=== PATIENT | male | born 1940 | race Caucasian/White ===

== ENCOUNTER → 2016-04-28 | Outpatient (CLI) | payer MEDICARE ==
[~2016-04-28] MED LIST: REGADENOSON 0.4 MG/5 ML SYRINGE IV ONE
--- NOTE | 2016-04-28 11:09 | EST ---
DATE OF SERVICE: 04/28/2016 AGE: 75Y SEX: M HT: 5'9" WT: 176 lbs. Protocol Arnie: Other: Lexiscan Cardiolite Stage: Dur. of Exercise: *Heart Rate Blood Pressure *Rest: 59 Rest: 145/109 * *Max. Achieved: 97 Maximum BP: 108/62 85% PMHR: 100% PMHR: *METS: INDICATIONS: Chest pain. MEDICATIONS: Aspirin, carvedilol, atorvastatin. STRESS DATA: Pretesting physical examination showed the heart rate 59, pressure is 145/109 mmHg. Baseline EKG shows sinus mechanism with Q wave inversion in the inferolateral leads. 4 mg of Lexiscan was given to the patient over ( ) seconds per protocol. Max heart rate was 97 beats per minute. The maximum blood pressure was 108/62 mmHg. Clinically, the patient developed some shortness of breath. The EKG did not show any significant changes compared to baseline. CONCLUSION: 1. Nondiagnostic electrocardiogram stress testing in response to Lexiscan. 2. Please follow up on the Cardiolite portion on a separate report from the radiology department.
--- NOTE | 2016-04-28 11:37 | NM ---
EXAMINATION TYPE: NM stress lexiscan cardiolite DATE OF EXAM: 04/28/2016 11:18 AM COMPARISON: NONE HISTORY: History of hypertension, prior stroke, hypercholesterolemia, tobacco use, prior heart cathet erization, and prior heart attack presents with chest pain per patient. Bradycardia per order. TECHNIQUE: After the intravenous administration of 11.0 mCi Tc 99m Sestamibi - Cardiolite resting SP ECT images acquired 45 minutes post injection. The patient received 0.4mg Lexiscan, 26.7 mCi Tc 99m Sestamibi - Stress images obtained [address] injection FINDINGS: Review of stress and rest SPECT images demonstrates poor area of uptake on stress and rest SPECT imag es involving the apex extending into all jules worrisome for old infarct. Some areas of periinfarct i schemia cannot be excluded on polar map imaging near the apex extending to mid segment level. Gated a nalysis shows akinesis of the apex, overall ejection fraction is 40% diminished from the normal range . IMPRESSION: Evidence of significant old infarct with cher-infarct ischemia though unlikely cannot be excluded, need to further investigate by direct catheter angiogram should be based on clinical and la b/EKG correlation.
== END | disposition home or self-care (01) ==
LOC: RADNMMAIN 08:16
PROVIDERS: ATTEND Family Medicine
DX: R94.31 Abnormal electrocardiogram [ECG] [EKG] (principal)
CPT/HCPCS: 93017; 78452; A9500; J2785

== ENCOUNTER → 2016-05-15 | Outpatient (CLI) | payer MEDICARE ==
--- NOTE | 2016-05-15 11:21 | ECHOF ---
Referral Reason:R00.1 bradycardia MEASUREMENTS -------- HEIGHT: 175.3 cm WEIGHT: 77.1 kg BP: 126/66 RVIDd: 2.5 cm (< 3.3) IVSd: 1.1 cm (0.6 - 1.1) LVIDd: 5.6 cm (3.9 - 5.3) LVPWd: 0.9 cm (0.6 - 1.1) IVSs: 1.7 cm LVIDs: 4.4 cm LVPWs: 1.7 cm LA Diam: 4.1 cm (2.7 - 3.8) LAESV Index (A-L): 24.89 ml/m Ao Diam: 3.4 cm (2.0 - 3.7) AV Cusp: 2.0 cm (1.5 - 2.6) MV EXCURSION: 12.364 mm (> 18.000) MV EF SLOPE: 57 mm/s (70 - 150) EPSS: 0.7 cm MV E Ellis: 0.43 m/s MV DecT: 337 ms MV A Ellis: 0.94 m/s MV E/A Ratio: 0.45 RAP: 5.00 mmHg RVSP: 25.29 mmHg FINDINGS -------- Resting bradycardia (HR<60bpm). This was a technically adequate study. The left ventricular size is normal. There is borderline concentric left ventricular hypertrophy. Overall left ventricular systolic function is moderate-severely impaired with, an EF between 30 - 35 %. Moderate basal septal hypertrophy with septal thickness 1.7 cm. Apical anterior LV wall motion is hypokinetic. Apical inferior LV wall motion is akinetic. Apical septum LV wall motion is akinetic. The right ventricle is normal in size. Normal LA size by volume 22+/-6 ml/m2. The right atrium is normal in size. Aortic valve is trileaflet and is mildly thickened. Trace to mild aortic regurgitation. The mitral valve leaflets are mildly thickened. Mild mitral annular calcification present. Mild mitral regurgitation is present. Mild tricuspid regurgitation present. Right ventricular systolic pressure is normal at < 35 mmHg. There is no pulmonic regurgitation present. The aortic root size is normal. IVC Not well visulized. There is no pericardial effusion. CONCLUSIONS -------- 1. Resting bradycardia (HR<60bpm). 2. Aortic valve is trileaflet and is mildly thickened. 3. Trace to mild aortic regurgitation. 4. The mitral valve leaflets are mildly thickened. 5. Mild mitral annular calcification present. 6. Mild mitral regurgitation is present. 7. Mild tricuspid regurgitation present. 8. Right ventricular systolic pressure is normal at < 35 mmHg. 9. There is no pulmonic regurgitation present. 10. The aortic root size is normal. 11. IVC Not well visulized. 12. This was a technically adequate study. 13. There is no pericardial effusion. 14. Moderate asymmetric septal hypertrophy with septal thickness 1.7 cm. 15. Apical anterior LV wall motion is hypokinetic. 16. Apical inferior LV wall motion is akinetic. 17. Apical septum LV wall motion is akinetic. 18. The right ventricle is normal in size. 19. Normal LA size by volume 22+/-6 ml/m2. 20. The right atrium is normal in size. EXTERNAL GRINDER TENDER: Fatmata Aguilar RDCS
== END | disposition home or self-care (01) ==
LOC: RADECHMAIN 08:18
PROVIDERS: ATTEND Family Medicine
DX: I08.3 Combined rheumatic disorders of mitral, aortic and tricuspid valves (principal)
CPT/HCPCS: 93306

== ENCOUNTER → 2019-10-26 | Outpatient (CLI) | payer MEDICARE ==
--- NOTE | 2019-10-26 11:49 | NM ---
EXAMINATION TYPE: NM stress lexiscan cardiolite DATE OF EXAM: 10/26/2019 COMPARISON: Prior stress test April 28, 2016 HISTORY: Abnormal EKG. History of hypertension, tobacco use, COPD, hypercholesterolemia, and 2 prior strokes along with myocardial infarction TECHNIQUE: After the intravenous administration of 9.9 mCi Tc 99m Sestamibi - Cardiolite resting SPE CT images acquired 45 minutes post injection. The patient received 0.4mg Lexiscan, 23.3 mCi Tc 99m Sestamibi - Stress images obtained [address] injection FINDINGS: Review of stress and rest SPECT images demonstrates persistent large area of diminished radiotracer u ptake involving the apex on all views extending into all jules consistent with large area of old infa rct. Gated analysis shows overall ejection fraction of 33% on current study, diminished from the norm al range. There is hypokinesis to akinesis of these old infarcted area. No convincing scintigraphic e vidence for new reversible ischemia. Increased end diastolic volume redemonstrated. 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 No convincing evidence for new reversible ischemia.
--- NOTE | 2019-10-26 20:29 | EST ---
EXERCISE STRESS DATE OF SERVICE: 10/26/2019 AGE: 79 SEX: M HT: 5'9" WT: 164 lbs PROTOCOL: Lexiscan Cardiolite STAGE: DURATION OF EXERCISE: HEART RATE REST: 49 BLOOD PRESSURE REST: 114/63 MAXIMUM HEART RATE ACHIEVED: 84 MAXIMUM BLOOD PRESSURE: 111/59 85% MPHR: 100% MPHR: METS: INDICATIONS: Abnormal EKG CLINICAL INFORMATION: 79-year-old male patient with abnormal ECG, referred for chest for a stress test. RESULTS: Baseline heart rate 49 beats per minute. Baseline blood pressure 140/63 mmHg. Baseline 12-lead ECG shows sinus rhythm with abnormal ST segments in the anterior precordial leads with occasional PVCs and ST depression in V5 and V6 and in the inferior leads. Patient received Lexiscan infusion per protocol. No significant change in heart rate or blood pressure. No symptoms noted. No new ECG abnormalities noted. Nuclear portion will be reported separately. MMODL / IJN: [id number] /
== END | disposition home or self-care (01) ==
LOC: RADNMMAIN 10-24 08:50
PROVIDERS: ATTEND Family Medicine
DX: R94.31 Abnormal electrocardiogram [ECG] [EKG] (principal)
CPT/HCPCS: 93017; 78452; A9500; J2785

== ENCOUNTER 2022-06-08 09:07 | Inpatient (IN) | payer MEDICARE ==
--- NOTE | 2022-06-08 09:26 | ED ---
General Adult HPI - General Stated complaint: UTI Time Seen by Provider: 06/08/22 09:11 Source: patient, EMS, RN notes reviewed Mode of arrival: EMS Limitations: altered mental status - History of Present Illness Initial comments: Patient is an 82-year-old male presenting to the emergency department with concern for possible urinary tract infection. Patient reportedly has been more weak recently. Patient also has strong smelling urine. EMS provides history. Patient is nonverbal. does show up later and confirms history - Related Data Home Medications Medication Instructions Recorded Confirmed Atorvastatin [Lipitor] 80 mg PO DAILY 02/03/15 06/08/22 Latanoprost Ophth [Xalatan 0.005%] 1 drops BOTH EYES HS 02/03/15 06/08/22 Tamsulosin [Flomax] 0.4 mg PO DAILY@0800 02/03/15 06/08/22 carvediloL [Coreg] 6.25 mg PO BID 03/08/15 06/08/22 Aspirin 325 mg PO HS 06/08/22 06/08/22 Bumetanide 1 mg PO DAILY@1000 06/08/22 06/08/22 Cephalexin [Keflex] 500 mg PO TID 06/08/22 06/08/22 Citalopram Hydrobromide 20 mg PO DAILY@0800 06/08/22 06/08/22 [Citalopram HBr] Ferrous Sulfate [Feosol] 325 mg PO DAILY@0800 06/08/22 06/08/22 Fexofenadine HCl [Margaret Allergy] 180 mg PO HS 06/08/22 06/08/22 Midodrine HCl 5 mg PO BID@1000,2000 06/08/22 06/08/22 Omeprazole [PriLOSEC] 20 mg PO HS 06/08/22 06/08/22 Allergies Allergy/AdvReac Type Severity Reaction Status Date / Time No Known Allergies Allergy Verified 06/08/22 12:51 Review of Systems ROS Statement: Those systems with pertinent positive or pertinent negative responses have been documented in the HPI. ROS Other: All systems not noted in ROS Statement are negative. Limitations: ROS unobtainable due to patients medical condition Past Medical History Past Medical History: CVA/TIA, Myocardial Infarction (UT), Prostate Disorder Additional Past Medical History / Comment(s): LEFT INGUINAL HERNIA, SPEECH EFFECTED BY STROKE PER SPOUSE Last Myocardial Infarction Date:: 1994 History of Any Multi-Drug Resistant Organisms: None Reported Past Surgical History: Appendectomy, Heart Catheterization, Orthopedic Surgery Additional Past Surgical History / Comment(s): cataracts Past Anesthesia/Blood Transfusion Reactions: No Reported Reaction Past Psychological History: No Psychological Hx Reported Past Alcohol Use History: None Reported Past Drug Use History: None Reported - Past Family History Father Family Medical History: Cancer Additional Family Medical History / Comment(s): LUNG Brother(s) Family Medical History: Cancer Additional Family Medical History / Comment(s): LUNG General Exam Limitations: altered mental status General appearance: alert, in no apparent distress Head exam: Present: atraumatic Eye exam: Present: normal appearance, PERRL ENT exam: Present: normal oropharynx Neck exam: Present: normal inspection. Absent: tenderness, meningismus Respiratory exam: Present: normal lung sounds bilaterally Cardiovascular Exam: Present: regular rate, normal rhythm GI/Abdominal exam: Present: soft. Absent: tenderness Extremities exam: Present: normal inspection. Absent: pedal edema, calf tenderness Neurological exam: Present: alert, altered Expanded Motor strength exam: RUE: 5, LUE: 5, RLE: 5, LLE: 5 Eye Response: (4) open spontaneously Motor Response: (6) obeys commands Verbal Response: incomprehensible sounds Psychiatric exam: Present: flat affect Skin exam: Present: normal color, erythema (Right lower leg cellulitis) Course Vital Signs 06/08/22 06/08/22 06/08/22 09:20 10:00 10:20 Temperature 97.6 F Pulse Rate 81 81 75 Respiratory 16 14 16 Rate Blood Pressure 107/64 114/77 97/65 O2 Sat by Pulse 99 99 99 Oximetry 06/08/22 06/08/22 06/08/22 10:30 10:45 11:00 Temperature Pulse Rate 59 L 51 L 57 L Respiratory 20 22 20 Rate Blood Pressure 97/65 105/56 99/57 O2 Sat by Pulse 98 96 97 Oximetry 06/08/22 06/08/22 06/08/22 11:15 11:30 11:45 Temperature Pulse Rate 67 85 87 Respiratory 22 24 24 Rate Blood Pressure 111/54 115/61 119/66 O2 Sat by Pulse 98 96 96 Oximetry 06/08/22 06/08/22 06/08/22 12:00 12:30 13:00 Temperature Pulse Rate 74 73 81 Respiratory 18 18 18 Rate Blood Pressure 122/63 119/79 132/74 O2 Sat by Pulse 94 L 93 L 94 L Oximetry 06/08/22 06/08/22 13:30 14:00 Temperature Pulse Rate 68 73 Respiratory 18 16 Rate Blood Pressure 106/85 126/54 O2 Sat by Pulse 94 L 93 L Oximetry EKG Findings - EKG Results: EKG: interpreted by ERMD (Septal Q waves. Lateral T wave inversion), sinus rhythm, normal axis EKG shows: bradycardia Medical Decision Making - Medical Decision Making Was pt. sent in by a medical professional or institution (, PA, PROFESSIONAL SYSTEM ADMINISTRATOR, urgent care, hospital, or jail...) When possible be specific @ -Patient did come from nursing facility Did you speak to anyone other than the patient for history (EMS, parent, family, police, friend...)? What history was obtained from this source @ - did arrive later and help provide history including cellulitis of right leg Did you review nursing and triage notes (agree or disagree)? Why? @ -I reviewed and agree with nursing and triage notes Were old charts reviewed (outside hosp., previous admission, EMS record, old EKG, old radiological studies, urgent care reports/EKG's, jail records)? Report findings @ -No old charts were reviewed Differential Diagnosis (chest pain, altered mental status, abdominal pain women, abdominal pain men, vaginal bleeding, weakness, fever, dyspnea, syncope, headache, dizziness, GI bleed, back pain, seizure, CVA, palpatations, mental health)? @ -Differential Weakness: Hypoglycemia, shock, sepsis, hyponatremia, anemia, infection, UT, ETOH, adverse medicine reaction, overdose, stroke, this is not meant to be an all-inclusive list. EKG interpreted by me (3pts min.). @ -As above X-rays interpreted by me (1pt min.). @ -Chest x-ray shows no acute process CT interpreted by me (1pt min.). @ -None done U/S interpreted by me (1pt. min.). @ -None done What testing was considered but not performed or refused? (CT, X-rays, U/S, labs)? Why? @ -None What meds were considered but not given or refused? Why? @ -None Did you discuss the management of the patient with other professionals (professionals i.e. , PA, PROFESSIONAL SYSTEM ADMINISTRATOR, lab, RT, psych nurse, social sciences chair, automotive starter repairer, teacher, network security officer, rifle case repairer)? Give summary @ -[Case was discussed with Dr. Capps who is familiar with this patient and will admit Was smoking cessation discussed for >3mins.? @ -No Was critical care preformed (if so, how long)? @ -No Were there social determinants of health that impacted care today? How? (Homelessness, low income, unemployed, alcoholism, drug addiction, trans portation, low edu. Level, literacy, decrease access to med. care, [facility], rehab)? @ -No Was there de-escalation of care discussed even if they declined (Discuss DNR or withdrawal of care, Hospice)? DNR status @ -No What co-morbidities impacted this encounter? (DM, HTN, Smoking, COPD, CAD, Cancer, CVA, ARF, Chemo, Hep., AIDS, mental health diagnosis, sleep apnea, morbid obesity)? @ -None Was patient admitted / discharged? Hospital course, mention meds given and route, prescriptions, significant lab abnormalities, going to OR and other pertinent info. @ -Patient reevaluated . Patient and family updated. Patient will be admitted with IV antibiotics and repeat troponin testing Undiagnosed new problem with uncertain prognosis? @ -No Drug Therapy requiring intensive monitoring for toxicity (Heparin, Nitro, Insulin, Cardizem)? @ -No Were any procedures done? @ -No Diagnosis/symptom? @ -Cellulitis, UTI Acute, or Chronic, or Acute on Chronic? @ -Acute, acute Uncomplicated (without systemic symptoms) or Complicated (systemic symptoms)? @ -default Side effects of treatment? @ -No Exacerbation, Progression, or Severe Exacerbation? @ -No Poses a threat to life or bodily function? How? (Chest pain, USA, UT, pneumonia, PE, COPD, DKA, ARF, appy, cholecystitis, CVA, Diverticulitis, Homicidal, Suicidal, threat to staff... and all critical care pts) @ -No - Lab Data Result diagrams: 06/08/22 09:33 06/08/22 09:33 Lab Results 06/08/22 06/08/22 06/08/22 Range/Units 09:33 09:33 09:33 WBC 9.4 (3.8-10.6) k/uL RBC 3.48 L (4.30-5.90) m/uL Hgb 11.5 L (13.0-17.5) gm/dL Hct 33.4 L (39.0-53.0) % MCV 95.8 (80.0-100.0) fL MCH 32.9 (25.0-35.0) pg MCHC 34.4 (31.0-37.0) g/dL RDW 14.3 (11.5-15.5) % Plt Count 242 (150-450) k/uL MPV 7.6 Neutrophils % 63 % Lymphocytes % 13 % Monocytes % 9 % Eosinophils % 12 % Basophils % 1 % Neutrophils # 6.0 (1.3-7.7) k/uL Lymphocytes # 1.2 (1.0-4.8) k/uL Monocytes # 0.8 (0-1.0) k/uL Eosinophils # 1.1 H (0-0.7) k/uL Basophils # 0.1 (0-0.2) k/uL PT 10.6 (9.0-12.0) sec INR 1.0 (<1.2) APTT 22.4 (22.0-30.0) sec Sodium (137-145) mmol/L Potassium (3.5-5.1) mmol/L Chloride (98-107) mmol/L Carbon Dioxide (22-30) mmol/L Anion Gap mmol/L BUN (9-20) mg/dL Creatinine (0.66-1.25) mg/dL Est GFR (CKD-EPI)AfAm (>60 ml/min/1.73 sqM) Est GFR (CKD-EPI)NonAf (>60 ml/min/1.73 sqM) Glucose (74-99) mg/dL Plasma Lactic Acid Cem (0.7-2.0) mmol/L Calcium (8.4-10.2) mg/dL Total Bilirubin (0.2-1.3) mg/dL AST (17-59) U/L ALT (4-49) U/L Alkaline Phosphatase (38-126) U/L Troponin I (0.000-0.034) ng/mL Total Protein (6.3-8.2) g/dL Albumin (3.5-5.0) g/dL Urine Color Yellow Urine Appearance Cloudy (Clear) Urine pH 5.5 (5.0-8.0) Ur Specific [place] 1.016 (1.001-1.035) Urine Protein 1+ H (Negative) Urine Glucose (UA) Negative (Negative) Urine Ketones Negative (Negative) Urine Blood Small H (Negative) Urine Nitrite Negative (Negative) Urine Bilirubin Negative (Negative) Urine Urobilinogen 2.0 (<2.0) mg/dL Ur Leukocyte Esterase Large H (Negative) Urine RBC 6 H (0-5) /hpf Urine WBC 25 H (0-5) /hpf Urine WBC Clumps Few H (None) /hpf Ur Squamous Epith Cells 11 H (0-4) /hpf Urine Bacteria Rare H (None) /hpf Hyaline Casts 3 H (0-2) /lpf Urine Mucus Rare H (None) /hpf 06/08/22 06/08/22 06/08/22 Range/Units 09:33 09:33 09:33 WBC (3.8-10.6) k/uL RBC (4.30-5.90) m/uL Hgb (13.0-17.5) gm/dL Hct (39.0-53.0) % MCV (80.0-100.0) fL MCH (25.0-35.0) pg MCHC (31.0-37.0) g/dL RDW (11.5-15.5) % Plt Count (150-450) k/uL MPV Neutrophils % % Lymphocytes % % Monocytes % % Eosinophils % % Basophils % % Neutrophils # (1.3-7.7) k/uL Lymphocytes # (1.0-4.8) k/uL Monocytes # (0-1.0) k/uL Eosinophils # (0-0.7) k/uL Basophils # (0-0.2) k/uL PT (9.0-12.0) sec INR (<1.2) APTT (22.0-30.0) sec Sodium 135 L (137-145) mmol/L Potassium 3.7 (3.5-5.1) mmol/L Chloride 99 (98-107) mmol/L Carbon Dioxide 29 (22-30) mmol/L Anion Gap 7 mmol/L BUN 31 H (9-20) mg/dL Creatinine 1.72 H (0.66-1.25) mg/dL Est GFR (CKD-EPI)AfAm 41 (>60 ml/min/1.73 sqM) Est GFR (CKD-EPI)NonAf 36 (>60 ml/min/1.73 sqM) Glucose 91 (74-99) mg/dL Plasma Lactic Acid Cem 1.0 (0.7-2.0) mmol/L Calcium 8.3 L (8.4-10.2) mg/dL Total Bilirubin 1.2 (0.2-1.3) mg/dL AST 35 (17-59) U/L ALT 27 (4-49) U/L Alkaline Phosphatase 111 (38-126) U/L Troponin I 0.035 H* (0.000-0.034) ng/mL Total Protein 6.2 L (6.3-8.2) g/dL Albumin 3.2 L (3.5-5.0) g/dL Urine Color Urine Appearance (Clear) Urine pH (5.0-8.0) Ur Specific [place] (1.001-1.035) Urine Protein (Negative) Urine Glucose (UA) (Negative) Urine Ketones (Negative) Urine Blood (Negative) Urine Nitrite (Negative) Urine Bilirubin (Negative) Urine Urobilinogen (<2.0) mg/dL Ur Leukocyte Esterase (Negative) Urine RBC (0-5) /hpf Urine WBC (0-5) /hpf Urine WBC Clumps (None) /hpf Ur Squamous Epith Cells (0-4) /hpf Urine Bacteria (None) /hpf Hyaline Casts (0-2) /lpf Urine Mucus (None) /hpf Disposition Clinical Impression: UTI (urinary tract infection), Cellulitis Disposition: ADMITTED IP TO THIS HOSP Is patient prescribed a controlled substance at d/c from ED?: No Referrals: Sukumar Capps MD [Primary Care Provider] - 1-2 days Time of Disposition: 14:54
[2022-06-08 10:11] LABS: Basophils # (A) 0.1 k/uL (0-0.2); Basophils % (A) 1 %; Eosinophils # (A) 1.1 k/uL (0-0.7); Eosinophils % (A) 12 %; HCT 33.4 % (39.0-53.0); HGB 11.5 gm/dL (13.0-17.5); Lymphocytes # (A) 1.2 k/uL (1.0-4.8); Lymphocytes % (A) 13 %; MCH 32.9 pg (25.0-35.0); MCHC 34.4 g/dL (31.0-37.0); MCV 95.8 fL (80.0-100.0); Mean Platelet Volume 7.6; Monocytes # (A) 0.8 k/uL (0-1.0); Monocytes % (A) 9 %; Neutrophils % (A) 63 %; Platelet Count 242 k/uL (150-450); RBC 3.48 m/uL (4.30-5.90); RDW 14.3 % (11.5-15.5); WBC 9.4 k/uL (3.8-10.6)
[2022-06-08 10:13] LABS: Albumin 3.2 g/dL (3.5-5.0); Calcium 8.3 mg/dL (8.4-10.2); Potassium 3.7 mmol/L (3.5-5.1); Total Bilirubin 1.2 mg/dL (0.2-1.3); Total Protein 6.2 g/dL (6.3-8.2)
[2022-06-08 10:16] LABS: Partial Thromboplastin Time 22.4 sec (22.0-30.0); Prothrombin Time 10.6 sec (9.0-12.0)
--- NOTE | 2022-06-08 10:20 | XR ---
EXAMINATION TYPE: XR chest 2V DATE OF EXAM: 06/08/2022 COMPARISON: Prior chest x-ray February 07, 2015 HISTORY: Weakness. TECHNIQUE: Frontal and lateral views of the chest are obtained. FINDINGS: Background chronic emphysematous changes redemonstrated. There is no suspicious focal air space opacity, pleural effusion, or pneumothorax seen. The cardiac silhouette size is mildly enlarge d on current study with ectatic and thoracic aorta. The osseous structures are intact. IMPRESSION: Chronic emphysematous change and mild cardiomegaly without acute pulmonary process.
[2022-06-08] MEDS ORDERED: SODIUM CHLORIDE 0.9% 500 ML 500 ML IV STA (11:13)
[2022-06-08 12:49] LABS: Appearance,Urine Cloudy (Clear); Bacteria,Urine Rare /hpf; Bilirubin,Urine Negative (Negative); Blood,Urine Small (Negative); Color,Urine Yellow; Glucose,Urine (UA) Negative (Negative); Hyaline Casts,Urine 3 /lpf (0-2); Ketones,Urine Negative (Negative); Leukocyte Esterase,Urine Large (Negative); Mucus,Urine Rare /hpf; Nitrite,Urine Negative (Negative); PH, Urine 5.5 (5.0-8.0); Protein,Urine 1+ (Negative); RBC,Urine 6 /hpf (0-5); Specific Gravity,Urine 1.016 (1.001-1.035); Squamous Epithelial Cell,Urine 11 /hpf (0-4); WBC,Urine 25 /hpf (0-5)
[2022-06-08] MEDS ORDERED: NALOXONE 0.4 MG/ML 1 ML VIAL IV PRN (14:55)
[2022-06-08] MEDS ORDERED: LORazepam 0.5 MG TAB PO PRN (14:55)
[2022-06-08] MEDS: SODIUM CHLORIDE 0.9% 1,000 ML IV SCH (15:21)
[2022-06-08] MEDS: FAMOTIDINE 20 MG TAB PO SCH (20:21)
[2022-06-08] MEDS ORDERED: FAMOTIDINE 20 MG TAB PO SCH (21:00)
[2022-06-09] MEDS: SODIUM CHLORIDE 0.9% 1,000 ML IV SCH ×2 (04:46→20:02)
[2022-06-09 09:55] LABS: Basophils # (A) 0.07 X 10*3/uL (0.00-0.10); Basophils % (A) 0.6 %; Eosinophils # (A) 0.43 X 10*3/uL (0.04-0.35); Eosinophils % (A) 3.8 %; HCT 31.9 % (39.6-50.0); HGB 10.4 g/dL (13.0-17.0); Immature Grans, Automated 0.5 %; Lymphocytes % (A) 10.6 %; MCH 31.5 pg (27.0-32.0); MCHC 32.6 g/dL (32.0-37.0); MCV 96.7 fL (80.0-97.0); Mean Platelet Volume 9.5 fL (9.5-12.2); Monocytes # (A) 1.28 X 10*3/uL (0.20-1.00); Monocytes % (A) 11.3 %; NRBC Per 100 WBC 0 /100 WBCS (0.0-0.0); Neutrophils # (A) 8.29 X 10*3/uL (1.80-7.70); Neutrophils % (A) 73.2 %; Platelet Count 238 X 10*3/uL (140-440); RDW 14.5 % (11.5-14.5); WBC 11.33 X 10*3/uL (4.50-10.00)
[2022-06-09 10:10] LABS: African American GFR (CKD) 58.1 (60.0-200.0); Albumin/Globulin Ratio 1.2 (1.60-3.17); Anion Gap 13.1 mmol/L (10.00-18.00); BUN/Creat Ratio 16.46 Ratio (12.00-20.00); Blood Urea Nitrogen 21.4 mg/dL (9.0-27.0); Calcium 8.3 mg/dL (8.7-10.3); Carbon Dioxide 20.9 mmol/L (20.0-27.5); Globulin 2.5 g/dL (1.6-3.3); Non-African American GFR(CKD) 50.1 (60.0-200.0); Potassium 3.6 mmol/L (3.5-5.5); Total Bilirubin 0.6 mg/dL (0.30-1.20); Total Protein 5.5 g/dL (6.2-8.2)
[2022-06-09] MEDS: FAMOTIDINE 20 MG TAB PO SCH (20:00)
[2022-06-09] MEDS: ENOXAPARIN 40 MG/0.4 ML SYRINGE SQ SCH (23:55)
--- NOTE | 2022-06-10 02:32 | HP ---
HISTORY AND PHYSICAL HISTORY OF PRESENT ILLNESS: An 82-year-old white male presented to the emergency room with urinary tract infection, weakness, fatigue, foul-smelling urine, atypical chest pain, nonverbal. He has cellulitis of the legs. Consult Dr. Galan. HOME MEDICINES: 1. Lipitor 80 daily. 2. Flomax 0.4 mg daily. 3. Latanoprost eye drops daily. 4. Coreg 6.25 b.i.d. 5. Aspirin 325 daily. 6. Bumex 1 mg daily. 7. Keflex 500 t.i.d. 8. . 9. Ferrous sulfate 325 daily. 10.Fexofenadine 180 . 11.Omeprazole 20 mg daily. ALLERGIES: No known drug allergies. REVIEW OF SYSTEMS: A 14-point review of systems otherwise is negative. PAST MEDICAL HISTORY: CVA, TIA, myocardial infarction, prostate disorder, left inguinal hernia, . REVIEW OF SYSTEMS: A 14-point review of systems, otherwise negative. PHYSICAL EXAMINATION: VITAL SIGNS: Temperature 97.6, pulse 81, respiratory rate 16 to 18, blood pressure 107 to 97 over 60s, O2 of 99%. CARDIOVASCULAR: S1, S2. LUNGS: Scattered wheeze. EXTREMITIES: No edema. HEMATOLOGY: Negative Homans. PSYCH: Fair mood and affect. GI: Soft. VASCULAR: Normal dorsalis pedis, posterior tibial and radial pulse. OPHTHALMOLOGIC: Pupils are equal, round, and reactive. MUSCULOSKELETAL: Right leg is swollen and red. ASSESSMENT: Cellulitis of the right leg, urinary tract infection, dehydration, atypical chest pain. PROGNOSIS: Guarded for chronic cellulitis. Follow up in the next 24 to 48 hours Follow up as an outpatient. Cardiology consult. Infectious Disease consult. MMODL / IJN: [id number] /
[2022-06-10] MEDS: IPRATROPIUM-ALBUTEROL 3 ML NEB INHALATION SCH ×4 (08:19→20:32)
[2022-06-10] MEDS: ATORVASTATIN 80 MG TAB PO SCH (08:36)
[2022-06-10] MEDS: SODIUM CHLORIDE 0.9% 1,000 ML IV SCH ×3 (09:18→21:52)
[2022-06-10 09:52] LABS: Basophils % (A) 0 %; Eosinophils # (A) 0.2 k/uL (0-0.7); Eosinophils % (A) 2 %; HCT 33.5 % (39.0-53.0); Lymphocytes # (A) 0.9 k/uL (1.0-4.8); Lymphocytes % (A) 9 %; MCH 32.5 pg (25.0-35.0); MCV 98.5 fL (80.0-100.0); Mean Platelet Volume 7.8; Monocytes # (A) 0.9 k/uL (0-1.0); Monocytes % (A) 9 %; Neutrophils # (A) 8.4 k/uL (1.3-7.7); Neutrophils % (A) 80 %; Platelet Count 226 k/uL (150-450); RDW 13.7 % (11.5-15.5); WBC 10.6 k/uL (3.8-10.6)
--- NOTE | 2022-06-10 10:08 | P.CRDCN ---
History of Present Illness Consult date: 06/10/22 Reason for Consult (text): Elevated troponins History of present illness: History of present illness: This is an 82-year-old male patient does not follow in the cardiology office with past medical history of severe dementia, CVA, hypertension, hyperlipidemia, benign prostatic hypertrophy, gastroesophageal reflux disease. Patient's is the primary caregiver and noticed that his urine had a foul odor and the patient had more increased weakness and multiple falls. Unable to obtain any history from the patient. EKG sinus bradycardia at 56 bpm Chest x-ray: Chronic emphysematous change and mild cardiomegaly without acute pulmonary process WBC 11.3, hemoglobin 10.4, platelet count 238. Electrolytes within normal limits. BUN 21 and creatinine 1.3. Note that patient's initial BUN was 31 creatinine 1.72. Troponin 0.035, 0.031 and 0.036. Liver function tests within normal limits. Urinalysis revealed leukoesterase large, WBC 25, epithelial cells 11. Home cardiac medications: Aspirin 325 mg at bedtime, atorvastatin 80 mg daily, Bumex 1 mg daily, Coreg 6.25 mg twice daily, midodrine 5 mg twice daily Review Of Systems: At the time of my evaluation: Constitutional: No documented fever. Reported by his weakness, fatigue. Lungs: No acute respiratory distress noted. Patient is able to lay flat in bed. Cardiovascular: No lower extremity edema. Abdominal: No noted vomiting or diarrhea. Musculoskeletal: + frequent falls. Neurologic: Form of expressive aphasia which is chronic. Chronic change in mentation due to dementia. Physical examination: Gen: This is an 82-year-old male. He is resting in bed flat in bed and appears to be comfortable and in no acute distress VS: reviewed HEENT: Head is atraumatic, normocephalic. Pupils equal, round. Sclerae is anicteric. NECK: Supple. No JVD. . LUNGS: Clear to auscultation. No wheezes or rhonchi. No intercostal retractions. HEART: Regular rate and rhythm. No murmur. ABDOMEN: Soft No tenderness. EXTREMITIES: No pedal edema. No calf tenderness. NEUROLOGICAL: Patient is awake, alert. Patient is unable to answer any questions, does not follow directions. Assessment: Mildly elevated troponin most likely due to acute kidney injury, sepsis Multiple falls and weakness Possible urinary tract infection CVA 2 Severe vascular dementia Hypertension Hyperlipidemia Benign prostatic hypertrophy Gastroesophageal reflux disease Plan: Unable to obtain 2-D echocardiogram due to patient's aggressive behavior towards configuration technician, echocardiogram canceled Continue patient's home cardiac medications Plan for medical management, no aggressive cardiac workup at this time. Further recommendations to follow based upon clinical course Thank you kindly for this consultation. Nurse practitioner note has been reviewed, I agree with documented findings and plan of care. Patient was seen and examined. Past Medical History Past Medical History: Cancer, CVA/TIA, Myocardial Infarction ([place]), Prostate Disorder Additional Past Medical History / Comment(s): CVA 2001 & 2012 -SPEECH AFFECTED BY STROKE PER SPOUSE, [place] 1997, skin cancer to face 2016 Last Myocardial Infarction Date:: 1994 History of Any Multi-Drug Resistant Organisms: None Reported Past Surgical History: Appendectomy, Heart Catheterization, Hernia Repair, Orthopedic Surgery Additional Past Surgical History / Comment(s): cataracts, skin cancer removed from face 2016, inguinal hernia repair 2015 Past Anesthesia/Blood Transfusion Reactions: No Reported Reaction Past Psychological History: No Psychological Hx Reported Smoking Status: Former smoker Past Alcohol Use History: None Reported Past Drug Use History: None Reported - Past Family History Father Family Medical History: Cancer Additional Family Medical History / Comment(s): LUNG Brother(s) Family Medical History: Cancer Additional Family Medical History / Comment(s): LUNG Medications and Allergies Home Medications Medication Instructions Recorded Confirmed Type Atorvastatin [Lipitor] 80 mg PO DAILY 02/03/15 06/08/22 History Latanoprost Ophth [Xalatan 0.005%] 1 drops BOTH EYES HS 02/03/15 06/08/22 History Tamsulosin [Flomax] 0.4 mg PO DAILY@0800 02/03/15 06/08/22 History carvediloL [Coreg] 6.25 mg PO BID 03/08/15 06/08/22 History Aspirin 325 mg PO HS 06/08/22 06/08/22 History Bumetanide 1 mg PO DAILY@1000 06/08/22 06/08/22 History Cephalexin [Keflex] 500 mg PO TID 06/08/22 06/08/22 History Citalopram Hydrobromide 20 mg PO DAILY@0800 06/08/22 06/08/22 History [Citalopram HBr] Ferrous Sulfate [Feosol] 325 mg PO DAILY@0800 06/08/22 06/08/22 History Fexofenadine HCl [Margaret Allergy] 180 mg PO HS 06/08/22 06/08/22 History Midodrine HCl 5 mg PO BID@1000,2000 06/08/22 06/08/22 History Omeprazole [PriLOSEC] 20 mg PO HS 06/08/22 06/08/22 History Allergies Allergy/AdvReac Type Severity Reaction Status Date / Time No Known Allergies Allergy Verified 06/08/22 12:51 Physical Exam Vitals: Vital Signs Temp Pulse Resp BP Pulse Ox 06/10/22 04:07 97.9 F 82 14 125/69 95 06/09/22 18:53 98.1 F 47 L 14 111/42 98 06/09/22 14:00 98.3 F 42 L 14 108/61 99 06/09/22 12:01 48 L 06/09/22 07:55 97.9 F 48 L 20 122/73 95 Intake and Output 06/09/22 06/10/22 06/10/22 22:59 06:59 14:59 Intake Total 1070 Output Total 1 Balance 1069 Intake: Intake, IV Titration 950 Amount Sodium Chloride 0.9% 1, 900 000 ml @ 75 mls/hr IV . [id number] [facility] Rx#:[id number] cefTRIAXone 1 gm In 50 Sodium Chloride 0.9% 50 ml @ 100 mls/hr IVPB Q12HR [facility] Rx#:[id number] Oral 120 Output: Urine 1 Other: Voiding Method Diaper Incontinent # Voids 1 1 # Bowel Movements 3 Results 06/10/22 08:25 06/09/22 05:43 Cardiac Enzymes 06/09/22 Range/Units 05:43 AST 31 (14-35) U/L CBC 06/09/22 Range/Units 05:43 WBC 11.33 H (4.50-10.00) X 10*3/uL RBC 3.30 L (4.40-5.60) X 10*6/uL Hgb 10.4 L (13.0-17.0) g/dL Hct 31.9 L (39.6-50.0) % Plt Count 238 (140-440) X 10*3/uL Comprehensive Metabolic Panel 06/09/22 Range/Units 05:43 Sodium 140 (135-145) mmol/L Potassium 3.6 (3.5-5.5) mmol/L Chloride 106 (96-109) mmol/L Carbon Dioxide 20.9 (20.0-27.5) mmol/L BUN 21.4 (9.0-27.0) mg/dL Creatinine 1.3 (0.6-1.5) mg/dL Glucose 94 (70-110) mg/dL Calcium 8.3 L (8.7-10.3) mg/dL AST 31 (14-35) U/L ALT 24 (10-49) U/L Alkaline Phosphatase 102 (41-126) U/L Total Protein 5.5 L (6.2-8.2) g/dL Albumin 3.0 L (3.8-4.9) g/dL Current Medications Generic Name Dose Route Start Last Admin Trade Name Freq PRN Reason Stop Dose Admin Acetaminophen 650 mg 06/08/22 14:55 Acetaminophen Tab 325 Mg Tab PO Q6HR PRN Mild Pain or Fever > 100.5 Albuterol/Ipratropium 3 ml 06/10/22 08:00 Ipratropium-Albuterol 3 Ml Neb INHALATION RT-QID [facility] Aspirin 325 mg 06/10/22 21:00 Aspirin 325 Mg Tab PO HS [facility] Atorvastatin Calcium 80 mg 06/10/22 09:00 Atorvastatin 80 Mg Tab PO DAILY [facility] Bumetanide 1 mg 06/10/22 09:00 Bumetanide 1 Mg Tab PO DAILY [facility] Carvedilol 6.25 mg 06/10/22 09:00 Carvedilol 6.25 Mg Tab PO BID [facility] Citalopram Hydrobromide 20 mg 06/10/22 09:00 Citalopram Hydrobromide 20 Mg Tab PO DAILY [facility] Enoxaparin Sodium 40 mg 06/09/22 23:45 06/09/22 23:55 Enoxaparin 40 Mg/0.4 Ml Syringe SQ 40 mg DAILY [facility] Administration Famotidine 20 mg 06/08/22 21:00 06/09/22 20:00 Famotidine 20 Mg Tab PO 20 mg HS [facility] Administration Ferrous Sulfate 325 mg 06/10/22 09:00 Ferrous Sulfate 325 Mg Tab PO DAILY [facility] Ceftriaxone Sodium 1 gm/ 50 mls @ 100 mls/hr 06/08/22 15:00 06/09/22 20:00 Sodium Chloride IVPB 100 mls/hr Q12HR [facility] Administration Protocol Sodium Chloride 1,000 mls @ 75 mls/hr 06/08/22 15:00 06/09/22 20:02 Saline 0.9% IV 75 mls/hr .[id number] [facility] Administration Latanoprost 1 drops 06/10/22 21:00 Latanoprost 0.005% Ophth Drops 2.5 Ml Btl BOTH EYES HS [facility] Loratadine 10 mg 06/10/22 21:00 Loratadine 10 Mg Tab PO HS [facility] Lorazepam 0.5 mg 06/08/22 14:55 Lorazepam 0.5 Mg Tab PO Q6HR PRN Anxiety Midodrine 5 mg 06/10/22 07:30 Midodrine 5 Mg Tab PO AC-BID [facility] Naloxone HCl 0.2 mg 06/08/22 14:55 Naloxone 0.4 Mg/Ml 1 Ml Vial IV Q2M PRN Opioid Reversal Pantoprazole Sodium 40 mg 06/10/22 21:00 Pantoprazole 40 Mg Tablet PO HS [facility] Tamsulosin HCl 0.4 mg 06/10/22 09:00 Tamsulosin 0.4 Mg Cap.Er.24h PO DAILY [facility] Intake and Output 06/09/22 06/10/22 06/10/22 22:59 06:59 14:59 Intake Total 1070 Output Total 1 Balance 1069 Intake: Intake, IV Titration 950 Amount Sodium Chloride 0.9% 1, 900 000 ml @ 75 mls/hr IV . [id number] [facility] Rx#:[id number] cefTRIAXone 1 gm In 50 Sodium Chloride 0.9% 50 ml @ 100 mls/hr IVPB Q12HR [facility] Rx#:[id number] Oral 120 Output: Urine 1 Other: Voiding Method Diaper Incontinent # Voids 1 1 # Bowel Movements 3 06/09/22 05:43 06/09/22 05:43
[2022-06-10] MEDS: ENOXAPARIN 40 MG/0.4 ML SYRINGE SQ SCH (12:03)
[2022-06-10] MEDS: MIDODRINE 5 MG TAB PO SCH ×2 (12:03→16:38)
[2022-06-10] MEDS: CITALOPRAM HYDROBROMIDE 20 MG TAB PO SCH (12:03)
[2022-06-10] MEDS: TAMSULOSIN 0.4 MG CAP.ER.24H PO SCH (12:03)
[2022-06-10] MEDS: BUMETANIDE 1 MG TAB PO SCH (12:03)
[2022-06-10] MEDS: FERROUS SULFATE 325 MG TAB PO SCH (12:03)
[2022-06-10] MEDS: carvediloL 6.25 MG TAB PO SCH ×2 (12:03→21:52)
[2022-06-10] MEDS: ACETAMINOPHEN TAB 325 MG TAB PO PRN (12:28)
--- NOTE | 2022-06-10 14:40 | CT ---
EXAMINATION TYPE: CT chest wo con DATE OF EXAM: 06/10/2022 COMPARISON: Chest x-ray 2 days ago HISTORY: chest pain. pt uncooperative and AMS CT DLP: 677 mGycm. Automated Exposure Control for Dose Reduction was Utilized. TECHNIQUE: CT scan of the thorax is performed without IV contrast. FINDINGS: Suboptimal study due to patient noncooperation with motion artifact on images obtained. LUNGS: Elevated left hemidiaphragm is present. There is background of underlying emphysematous change . There is reticulation and/or fibrotic change in the left upper lobe posteriorly along the fissure a nd also seen in the dependent aspect of both lungs with additional areas of dependent atelectasis. Mo tion artifact limits evaluation for subcentimeter nodules in particular. There is a 6 x 4 mm right mi d lung nodule axial image 35. No pneumothorax seen bilaterally. Trace right pleural effusion. MEDIASTINUM: Lack of IV contrast is noted to limit evaluation for mediastinal and especially hilar ad enopathy. There are no definitive greater than 1 cm mediastinal lymph nodes. No cardiomegaly or pe ricardial effusion is seen. Severe three-vessel coronary artery calcification and/or stents. Moderate left atrial dilatation. Mild to moderate left ventricular dilatation. Calcification of the mitral va lve. Prominent right and left pulmonary arteries raising concern for underlying pulmonary artery hype rtension. There is mild to moderate calcified plaque of the aorta extending into branch vessels. OTHER: Gallbladder has distended margins without surrounding fluid or fat stranding. There is asymmet jane cortical thinning and diminished size of the right kidney. There is some cortical thinning in the left kidney. There is mild left-sided hydronephrosis and hydroureter. There is S-shaped scoliosis wi th multilevel spurring in the spine. IMPRESSION: 1. Suboptimal study. Mild emphysematous change with scattered areas of scarring and/or mild edema. Ti ny right pleural effusion. No suspicious focal consolidation. There is suggestion of underlying pulmo nary artery hypertension. There is mild to moderate left atrial and left ventricular dilatation. Elev ated left hemidiaphragm. 2. Severe three-vessel coronary artery calculi and there are stents. Correlate clinically. 3. Asymmetric end-stage atrophy to the right kidney. Evidence of chronic medical renal disease left k idney. Mild left-sided hydronephrosis is present which may warrant further workup. Follow-up advised.
[2022-06-10 17:31] LABS: ALT 25 U/L (10-49); AST 31 U/L (14-35); African American GFR (CKD) 65.3 (60.0-200.0); Albumin/Globulin Ratio 1.14 (1.60-3.17); Alkaline Phosphatase 100 U/L (41-126); BUN/Creat Ratio 13.73 Ratio (12.00-20.00); Blood Urea Nitrogen 16.2 mg/dL (9.0-27.0); Calcium 8.3 mg/dL (8.7-10.3); Carbon Dioxide 19.8 mmol/L (20.0-27.5); Chloride 106 mmol/L (96-109); Globulin 2.6 g/dL (1.6-3.3); Glucose 90 mg/dL (70-110); Non-African American GFR(CKD) 56.3 (60.0-200.0); Potassium 3.4 mmol/L (3.5-5.5); Sodium 140 mmol/L (135-145); Total Protein 5.5 g/dL (6.2-8.2)
--- NOTE | 2022-06-10 19:05 | P.CONS ---
History of Present Illness - Reason for Consult Consult date: 06/10/22 Right leg cellulitis Requesting physician: Sukumar Capps - Chief Complaint Weakness and strong smelling urine X FEW DAYS - History of Present Illness Patient is a 82-year-old male with a past medical history significant for CVA TIA [place] prostate disorder patient was brought into the ER concerning for possible UTI apparently patient has been complaining of more weakness and did have strong smelling urine most information was provided by EMS who brought the patient to the hospital on arrival to the ER the patient was afebrile and no fever have been recorded subsequently patient did have a normal white count was slightly elevated 11.3 yesterday with a left shift BUN/creatinine was mildly elevated troponins were mildly elevated he did have a positive UA patient did also have increasing swelling and some redness of the right lower extremity per the at the bedside but no open wound or any drainage patient did have a chest x-ray report for chronic emphysematous changes mild cardiomegaly without acute pulmonary process patient was started on Rocephin infectious disease was consulted for further management of antibiotic therapy most information has been obtained from review of the chart talking to the as the patient said was elevated good historian Review of Systems Positive points has been mentioned in HPI complete review could not be obtained because of his underlying mental status Past Medical History Past Medical History: Cancer, CVA/TIA, Myocardial Infarction ([place]), Prostate Disorder Additional Past Medical History / Comment(s): CVA 2001 & 2012 -SPEECH AFFECTED BY STROKE PER SPOUSE, [place] 1997, skin cancer to face 2017 Last Myocardial Infarction Date:: 1994 History of Any Multi-Drug Resistant Organisms: None Reported Past Surgical History: Appendectomy, Heart Catheterization, Hernia Repair, Orthopedic Surgery Additional Past Surgical History / Comment(s): cataracts, skin cancer removed from face 2017, inguinal hernia repair 2015 Past Anesthesia/Blood Transfusion Reactions: No Reported Reaction Past Psychological History: No Psychological Hx Reported Smoking Status: Former smoker Past Alcohol Use History: None Reported Past Drug Use History: None Reported - Past Family History Father Family Medical History: Cancer Additional Family Medical History / Comment(s): LUNG Brother(s) Family Medical History: Cancer Additional Family Medical History / Comment(s): LUNG Medications and Allergies Home Medications Medication Instructions Recorded Confirmed Type Atorvastatin [Lipitor] 80 mg PO DAILY 02/03/15 06/08/22 History Latanoprost Ophth [Xalatan 0.005%] 1 drops BOTH EYES HS 02/03/15 06/08/22 History Tamsulosin [Flomax] 0.4 mg PO DAILY@0800 02/03/15 06/08/22 History carvediloL [Coreg] 6.25 mg PO BID 03/08/15 06/08/22 History Aspirin 325 mg PO HS 06/08/22 06/08/22 History Bumetanide 1 mg PO DAILY@1000 06/08/22 06/08/22 History Cephalexin [Keflex] 500 mg PO TID 06/08/22 06/08/22 History Citalopram Hydrobromide 20 mg PO DAILY@0800 06/08/22 06/08/22 History [Citalopram HBr] Ferrous Sulfate [Feosol] 325 mg PO DAILY@0800 06/08/22 06/08/22 History Fexofenadine HCl [Margaret Allergy] 180 mg PO HS 06/08/22 06/08/22 History Midodrine HCl 5 mg PO BID@1000,199906/08/22 06/08/22 History Omeprazole [PriLOSEC] 20 mg PO HS 06/08/22 06/08/22 History Allergies Allergy/AdvReac Type Severity Reaction Status Date / Time No Known Allergies Allergy Verified 06/08/22 12:51 Physical Exam Vitals: Vital Signs Temp Pulse Pulse Resp BP Pulse Ox 06/10/22 08:35 83 20 06/10/22 08:28 73 06/10/22 08:22 72 06/10/22 08:00 83 20 137/55 99 06/10/22 04:07 97.9 F 82 14 125/69 95 06/09/22 18:53 98.1 F 47 L 14 111/42 98 06/09/22 14:00 98.3 F 42 L 14 108/61 99 06/09/22 12:01 48 L Intake and Output 06/09/22 06/10/22 06/10/22 22:59 06:59 14:59 Intake Total 1070 Output Total 1 Balance 1069 Intake: Intake, IV Titration 950 Amount Sodium Chloride 0.9% 1, 900 000 ml @ 75 mls/hr IV . [id number] [facility] Rx#:[id number] cefTRIAXone 1 gm In 50 Sodium Chloride 0.9% 50 ml @ 100 mls/hr IVPB Q12HR [facility] Rx#:[id number] Oral 120 Output: Urine 1 Other: Voiding Method Diaper Diaper Incontinent Incontinent # Voids 1 1 1 # Bowel Movements 3 GENERAL DESCRIPTION: An elderly male lying in bed, no distress. No tachypnea or accessory muscle of respiration use. HEENT: Shows Pallor , no scleral icterus. Oral mucous membrane is dry. No pharyngeal erythema or thrush NECK: Trachea central, no thyromegaly. LUNGS: Unlabored breathing. Decreased breath sound at the base HEART: S1, S2, regular rate and rhythm. No loud murmur ABDOMEN: Soft, no tenderness , guarding or rigidity, no organomegaly EXTREMITIES: Right lower extremity with some superficial ulceration no slough tissue or foul-smelling drainage SKIN: No rash, no masses palpable. NEUROLOGICAL: The patient is awake, slightly restless and nonverbal ,orientation could not be determined Results CBC & Chem 7: 06/11/22 06:13 06/12/22 19:52 Labs: Abnormal Lab Results - Last 24 Hours (Table) 06/10/22 Range/Units 08:25 RBC 3.40 L (4.30-5.90) m/uL Hgb 11.0 L (13.0-17.5) gm/dL Hct 33.5 L (39.0-53.0) % Neutrophils # 8.4 H (1.3-7.7) k/uL Lymphocytes # 0.9 L (1.0-4.8) k/uL Microbiology - Last 24 Hours (Table) 06/08/22 15:07 Blood Culture - Preliminary Blood No Growth after 24 hours 06/08/22 15:13 Blood Culture - Preliminary Blood No Growth after 24 hours Assessment and Plan (1) UTI (urinary tract infection) Current Visit: Yes Status: Acute Code(s): N39.0 - URINARY TRACT INFECTION, SITE NOT SPECIFIED SNOMED Code(s): 63811096 Plan: 1patient was in the hospital with weakness some mental status changes also noticed to have a cloudy urine did have a positive UA likely concerning for symptomatic ureteric infection from enteric gram-negative pathogen there was concern for possible right lower extremity cellulitis as mentioned by the however overall swelling and redness has improved currently with no open wound or any drainage. 2patient to continue with Rocephin while waiting for the culture to finalize 3-gentle IV fluid We will follow on clinical condition and cultures to further adjust medication if needed Thank you for this consultation we will follow the patient along with you Time with Patient: Greater than 30
[2022-06-10] MEDS: ASPIRIN 325 MG TAB PO SCH (21:45)
[2022-06-10] MEDS: PANTOPRAZOLE 40 MG TABLET PO SCH (21:45)
[2022-06-10] MEDS: LORATADINE 10 MG TAB PO SCH (21:45)
[2022-06-10] MEDS: FAMOTIDINE 20 MG TAB PO SCH (21:45)
[2022-06-10] MEDS: LATANOPROST 0.005% OPHTH DROPS 2.5 ML BTL BOTH EYES SCH (21:46)
--- NOTE | 2022-06-11 06:00 | PN ---
PROGRESS NOTE SUBJECTIVE: He remains on Lovenox for DVT prophylaxis. CT scan shows pulmonary hypertension. Ordered echo. He has COPD, UTI. Wait for final urine culture. Remains on broad- spectrum antibiotics. He is more alert, maybe go to [facility] OBJECTIVE: VITAL SIGNS: Blood pressure 107/66, O2 of 96% on room air, temp 97.9, pulse 68, respiratory rate 16 to 18. CARDIOVASCULAR: S1, S2. LUNGS: Decreased breath sounds x4. ABDOMEN: Soft, nontender. Hematology: Negative Homans. ASSESSMENT: Metabolic encephalopathy, urinary tract infection with sepsis, pulmonary hypertension, chronic obstructive pulmonary disease. Continue current treatments, broad-spectrum antibiotics. Echo is pending. Prognosis guarded. MMODL / IJN: [id number] /
[2022-06-11] MEDS: MIDODRINE 5 MG TAB PO SCH ×2 (07:57→17:53)
[2022-06-11 08:46] LABS: HCT 33.5 % (39.6-50.0); HGB 10.7 g/dL (13.0-17.0); MCH 31.5 pg (27.0-32.0); MCHC 31.9 g/dL (32.0-37.0); MCV 98.5 fL (80.0-97.0); Mean Platelet Volume 9.7 fL (9.5-12.2); NRBC Per 100 WBC 0 /100 WBCS (0.0-0.0); Platelet Count 221 X 10*3/uL (140-440); RDW 14.4 % (11.5-14.5); WBC 11.24 X 10*3/uL (4.50-10.00)
[2022-06-11 08:52] LABS: African American GFR (CKD) 71.1 (60.0-200.0); Albumin 2.8 g/dL (3.8-4.9); Albumin/Globulin Ratio 1.17 (1.60-3.17); Anion Gap 7.7 mmol/L (10.00-18.00); BUN/Creat Ratio 16.36 Ratio (12.00-20.00); Calcium 8.3 mg/dL (8.7-10.3); Carbon Dioxide 25.3 mmol/L (20.0-27.5); Globulin 2.4 g/dL (1.6-3.3); Non-African American GFR(CKD) 61.3 (60.0-200.0); Potassium 3.3 mmol/L (3.5-5.5); Total Bilirubin 0.5 mg/dL (0.30-1.20); Total Protein 5.2 g/dL (6.2-8.2)
[2022-06-11] MEDS: IPRATROPIUM-ALBUTEROL 3 ML NEB INHALATION SCH ×4 (09:12→20:34)
[2022-06-11 09:59] LABS: Basophils # (A) 0.08 X 10*3/uL (0.00-0.10); Basophils % (A) 0.7 %; Eosinophils # (A) 0.55 X 10*3/uL (0.04-0.35); Eosinophils % (A) 4.9 %; Immature Grans, Automated 0.5 %; Lymphocytes # (A) 1.53 X 10*3/uL (0.90-5.00); Lymphocytes % (A) 13.6 %; Monocytes # (A) 1.55 X 10*3/uL (0.20-1.00); Monocytes % (A) 13.8 %; Neutrophils # (A) 7.47 X 10*3/uL (1.80-7.70); Neutrophils % (A) 66.5 %; RBC Morphology NORMAL
[2022-06-11] MEDS: BUMETANIDE 1 MG TAB PO SCH (10:00)
[2022-06-11] MEDS: carvediloL 6.25 MG TAB PO SCH ×2 (10:00→21:23)
[2022-06-11] MEDS: CITALOPRAM HYDROBROMIDE 20 MG TAB PO SCH (10:00)
[2022-06-11] MEDS: TAMSULOSIN 0.4 MG CAP.ER.24H PO SCH (10:00)
[2022-06-11] MEDS: FERROUS SULFATE 325 MG TAB PO SCH (10:00)
[2022-06-11] MEDS: ENOXAPARIN 40 MG/0.4 ML SYRINGE SQ SCH (10:00)
[2022-06-11] MEDS: ATORVASTATIN 80 MG TAB PO SCH (10:01)
[2022-06-11] MEDS ORDERED: Potassium Replacement Protocol 1 EACH MISC MISCELLANE PRN (13:27)
[2022-06-11] MEDS: POTASSIUM CHLORIDE ER 20 MEQ TAB.ER PO SCH ×2 (14:04→14:51)
[2022-06-11] MEDS: PANTOPRAZOLE 40 MG TABLET PO SCH (21:23)
[2022-06-11] MEDS: LATANOPROST 0.005% OPHTH DROPS 2.5 ML BTL BOTH EYES SCH (21:23)
[2022-06-11] MEDS: LORATADINE 10 MG TAB PO SCH (21:23)
[2022-06-11] MEDS: FAMOTIDINE 20 MG TAB PO SCH (21:23)
[2022-06-11] MEDS: ASPIRIN 325 MG TAB PO SCH (21:23)
[2022-06-12] MEDS: SODIUM CHLORIDE 0.9% 1,000 ML IV SCH ×2 (04:20→12:37)
[2022-06-12] MEDS: IPRATROPIUM-ALBUTEROL 3 ML NEB INHALATION SCH ×4 (07:47→21:33)
[2022-06-12] MEDS: MIDODRINE 5 MG TAB PO SCH ×2 (07:51→18:07)
[2022-06-12] MEDS: BUMETANIDE 1 MG TAB PO SCH (08:56)
[2022-06-12] MEDS: carvediloL 6.25 MG TAB PO SCH ×2 (08:56→20:15)
[2022-06-12] MEDS: ATORVASTATIN 80 MG TAB PO SCH (08:56)
[2022-06-12] MEDS: CITALOPRAM HYDROBROMIDE 20 MG TAB PO SCH (08:57)
[2022-06-12] MEDS: ENOXAPARIN 40 MG/0.4 ML SYRINGE SQ SCH (08:57)
[2022-06-12] MEDS: TAMSULOSIN 0.4 MG CAP.ER.24H PO SCH (08:57)
[2022-06-12] MEDS: FERROUS SULFATE 325 MG TAB PO SCH (08:57)
--- NOTE | 2022-06-12 11:36 | CA ---
Transthoracic Echo Report Name: Samm Diaz Age: 82 Gender: M : 1940 Exam Date: 06/11/2022 08:58 Exam Location: [facility] Ht (in): 70 Wt (lb): 150 Ordering Physician: Sukumar Capps MD Attending/Referring Phys: Cna Hha Lokesh Mckinley RDCS Procedure CPT: Indications: pulm htn Cardiac Hx: Dementia. Atherosclerosis: PHTN; Technical Quality: Poor -Patient has a very narrowed ICSs Contrast 1: Total Dose (mL): Contrast 2: Total Dose (mL): MEASUREMENTS (Male / Female) Normal Values 2D ECHO LV Diastolic Diameter PLAX 4.6 cm 4.2 - 5.9 / 3.9 - 5.3 cm LV Systolic Diameter PLAX 3.4 cm IVS Diastolic Thickness 0.9 cm 0.6 - 1.0 / 0.6 - 0.9 cm LVPW Diastolic Thickness 1.0 cm 0.6 - 1.0 / 0.6 - 0.9 cm LV Relative Wall Thickness 0.4 RV Internal Dim ED PLAX 3.6 cm LVOT Diameter 2.0 cm LA Systolic Diameter LX 3.0 cm 3.0 - 4.0 / 2.7 - 3.8 cm LV Diastolic Volume MOD BP 93.9 cm??? 67 - 155 / 56 - 104 cm??? LV Systolic Volume MOD BP 59.9 cm??? 22 - 58 / 19 - 49 cm??? LV Ejection Fraction MOD BP 36.2 % >= 55 % LV Diastolic Volume MOD 4C 85.1 cm??? LV Systolic Volume MOD 4C 61.9 cm??? LV Ejection Fraction MOD 4C 27.3 % LV Diastolic Length 4C 7.8 cm LV Systolic Length 4C 7.0 cm LV Diastolic Volume MOD 2C 96.3 cm??? LV Systolic Volume MOD 2C 55.4 cm??? LV Ejection Fraction MOD 2C 42.5 % LV Diastolic Length 2C 8.7 cm LV Systolic Length 2C 7.7 cm Ascending Aorta Diameter 3.1 cm M-MODE Aortic Root Diameter MM 2.9 cm LA Systolic Diameter MM 3.9 cm LA Ao Ratio MM 1.4 MV E Point Septal Separation 1.1 cm AV Cusp Separation MM 1.5 cm DOPPLER AV Peak Velocity 91.6 cm/s AV Peak Gradient 3.4 mmHg MR Peak Velocity 391.9 cm/s MR Peak Gradient 61.4 mmHg Mitral E Point Velocity 50.8 cm/s Mitral A Point Velocity 100.4 cm/s Mitral E to A Ratio 0.5 MV Deceleration Time 272.7 ms MV E' Velocity 3.9 cm/s Mitral E to MV E' Ratio 12.9 TR Peak Velocity 245.8 cm/s TR Peak Gradient 24.2 mmHg Right Ventricular Systolic Press 32.6 mmHg PV Peak Velocity 60.2 cm/s PV Peak Gradient 1.5 mmHg FINDINGS Left Ventricle Left ventricular ejection fraction is estimated at 45-50 %. Asymmetric left ventricular hypertrophy. IVS is very bulged.grade 1 diastolic dysfunction. Normal basal systolic function. Right Ventricle Normal right ventricular size. RVSP- 41 mm Hg. Right Atrium Mild right atrial dilatation. Left Atrium Mild left atrial dilatation. Mitral Valve Mitral valve thickened. Mitral annular calcification. Minimal mitral stenosis. [id number] mitral regurgitation. Aortic Valve Very sclerotic AV;diffuse thickening of the aortic valve cusps with reduced excursion. Tricuspid Valve [id number] tricuspid regurgitation. Pulmonic Valve Structurally normal pulmonic valve. Pericardium Normal pericardium. No pericardial effusion. Aorta Normal size aortic root and proximal ascending aorta. CONCLUSIONS Mildly impaired LV function was EF between 45-50% [id number] mitral regurgitation Aortic sclerosis with no stenosis or insufficiency [id number] tricuspid regurgitation Previewed by: Dr. Jaspal Rodriguez MD (Electronically Signed) Final Date: 12 June 2022 11:35
--- NOTE | 2022-06-12 16:01 | P.PN ---
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 On today's evaluation that is 06/11/2022, patient is afebrile, the patient's is more awake and alert per the family at the bedside, patient is breathing comfortably on room air not a good historian and no vomiting or diarrhea has been reported Objective - Vital Signs Vital signs: Vital Signs Temp 97.8 F 06/11/22 12:08 Pulse 76 06/11/22 12:08 Resp 16 06/11/22 12:08 BP 128/67 06/11/22 12:08 Pulse Ox 100 06/11/22 12:08 FiO2 Intake & Output 06/10/22 06/11/22 06/11/22 18:59 06:59 18:59 Intake Total 370 300 240 Output Total 0 Balance 370 300 240 Intake: Intake, IV Titration 50 Amount cefTRIAXone 1 gm In 50 Sodium Chloride 0.9% 50 ml @ 100 mls/hr IVPB Q12HR [facility] Rx#:[id number] Oral 370 250 240 Output: Urine 0 Other: Voiding Method Diaper Diaper Diaper Incontinent Incontinent Incontinent # Voids 2 3 # Bowel Movements 1 - Exam GENERAL DESCRIPTION: An elderly male lying in bed in no distress RESPIRATORY SYSTEM: Unlabored breathing , decreased breath sounds at bases HEART: S1 S2 regular rate and rhythm , ABDOMEN: Soft , no tenderness EXTREMITIES: No edema feet - Labs CBC & Chem 7: 06/11/22 06:13 06/11/22 06:13 Labs: Abnormal Lab Results - Last 24 Hours (Table) 06/10/22 06/11/22 06/11/22 Range/Units 08:25 06:13 06:13 WBC 11.24 H (4.50-10.00) X 10*3/uL RBC 3.40 L (4.40-5.60) X 10*6/uL Hgb 10.7 L (13.0-17.0) g/dL Hct 33.5 L (39.6-50.0) % MCV 98.5 H (80.0-97.0) fL MCHC 31.9 L (32.0-37.0) g/dL Immature Gran # 0.06 H (0.00-0.04) X 10*3/uL Monocytes # 1.55 H (0.20-1.00) X 10*3/uL Eosinophils # 0.55 H (0.04-0.35) X 10*3/uL Potassium 3.4 L 3.3 L (3.5-5.5) mmol/L Carbon Dioxide 19.8 L (20.0-27.5) mmol/L Anion Gap 7.70 L (10.00-18.00) mmol/L Est GFR (CKD-EPI)NonAf 56.3 L (60.0-200.0) Calcium 8.3 L 8.3 L (8.7-10.3) mg/dL Total Protein 5.5 L 5.2 L (6.2-8.2) g/dL Albumin 3.0 L 2.8 L (3.8-4.9) g/dL Albumin/Globulin Ratio 1.14 L 1.17 L (1.60-3.17) g/dL Microbiology - Last 24 Hours (Table) 06/08/22 09:33 Urine Culture - Final Urine,Voided Corynebacterium urealyticum(D2 06/08/22 15:07 Blood Culture - Preliminary Blood No Growth after 48 hours 06/08/22 15:13 Blood Culture - Preliminary Blood No Growth after 48 hours Assessment and Plan (1) UTI (urinary tract infection) Current Visit: Yes Status: Acute Code(s): N39.0 - URINARY TRACT INFECTION, SITE NOT SPECIFIED SNOMED Code(s): 91146517 Plan: 1patient was in the hospital with weakness some mental status changes also noticed to have a cloudy urine did have a positive UA likely concerning for symp tomatic ureteric infection from enteric gram-negative pathogen there was concern for possible right lower extremity cellulitis as mentioned by the however overall swelling and redness has improved currently with no open wound or any drainage. 2patient to continue with Rocephin while waiting for the culture to finalize Time with Patient: Less than 30
--- NOTE | 2022-06-12 16:02 | P.PN ---
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 On today's evaluation that is 06/12/2022, patient remains to be afebrile, patient is breathing comfortably on room air however the patient is not a good historian and cannot provide reliable history Objective - Vital Signs Vital signs: Vital Signs Temp 97.6 F 06/12/22 11:52 Pulse 81 06/12/22 11:52 Resp 18 06/12/22 11:52 BP 133/74 06/12/22 11:52 Pulse Ox 97 06/12/22 11:52 FiO2 21 06/12/22 07:47 Intake & Output 06/11/22 06/12/22 06/12/22 18:59 06:59 18:59 Intake Total 520 1490 Balance 520 1490 Intake: Intake, IV Titration 900 Amount Sodium Chloride 0.9% 1, 900 000 ml @ 75 mls/hr IV . [id number] [facility] Rx#:[id number] Oral 520 590 Other: Voiding Method Diaper Diaper Diaper Incontinent Incontinent # Voids 4 2 1 - Exam GENERAL DESCRIPTION: An elderly male lying in bed in no distress RESPIRATORY SYSTEM: Unlabored breathing , decreased breath sounds at bases HEART: S1 S2 regular rate and rhythm , ABDOMEN: Soft , no tenderness EXTREMITIES: No edema feet - Labs CBC & Chem 7: 06/11/22 06:13 06/11/22 06:13 Labs: Microbiology - Last 24 Hours (Table) 06/08/22 15:07 Blood Culture - Preliminary Blood No Growth after 72 hours 06/08/22 15:13 Blood Culture - Preliminary Blood No Growth after 72 hours Assessment and Plan (1) UTI (urinary tract infection) Current Visit: Yes Status: Acute Code(s): N39.0 - URINARY TRACT INFECTION, SITE NOT SPECIFIED SNOMED Code(s): 61535224 Plan: 1patient was in the hospital with weakness some mental status changes also not iced to have a cloudy urine did have a positive UA likely concerning for symptomatic ureteric infection from enteric gram-negative pathogen there was concern for possible right lower extremity cellulitis as mentioned by the however overall swelling and redness has improved currently with no open wound or any drainage. 2patient blood culture have been negative urine showing corynebacterium species to continue with Rocephin and monitor clinical course closely
[2022-06-12] MEDS: LATANOPROST 0.005% OPHTH DROPS 2.5 ML BTL BOTH EYES SCH (20:14)
[2022-06-12] MEDS: SACUBITRIL/VALSARTAN 24 MG-26 MG TABLET PO SCH (20:15)
[2022-06-12] MEDS: ASPIRIN 325 MG TAB PO SCH (20:15)
[2022-06-12] MEDS: PANTOPRAZOLE 40 MG TABLET PO SCH (20:15)
[2022-06-12] MEDS: FAMOTIDINE 20 MG TAB PO SCH (20:15)
[2022-06-12] MEDS: LORATADINE 10 MG TAB PO SCH (20:15)
[2022-06-12] MEDS ORDERED: POTASSIUM CHLORIDE ER 20 MEQ TAB.ER PO SCH (21:00)
[2022-06-13] MEDS: SODIUM CHLORIDE 0.9% 1,000 ML IV SCH ×2 (02:58→15:32)
--- NOTE | 2022-06-13 03:37 | PN ---
PROGRESS NOTE DATE OF SERVICE: 06/11/2022 SUBJECTIVE: This is an 82-year-old white male, has Corynebacterium UTI, wait for Dr. Galan's recommendations. We are going to get PT OT involved. Medications treatment for COPD and pulmonary hypertension are in place. Depression. He is on DVT prophylaxis, being treated for diastolic heart failure. He continues on current treatments. Potassium replacement protocol. He is on midodrine for orthostatic hypotension. Echo has been ordered. Cardiology consulted. OBJECTIVE: VITAL SIGNS: Blood pressure 130s/70s, O2 97, temp 97.6, pulse 81, respiratory rate 16 to 18. PSYCH: He is alert and oriented x1, giving appropriate answers. CARDIOVASCULAR: S1, S2. ENT: Extremely hard hearing. Ophthalmologic pupils equal, round, reactive. LUNGS: Decreased breath sounds x4. LABS: Positive Corynebacterium with elevated white count 11.24 with a left shift. Sodium 142, potassium was 3.3, elevated troponin x1. BNP is 9640. ASSESSMENT: Acute on chronic diastolic heart failure, chronic obstructive pulmonary disease, pulmonary hypertension. Continue current treatments. Prognosis is guarded. Wait for Cardiology and infectious Disease, PT, OT, possible retirement placement for weakness. MMODL / IJN: [id number] /
[2022-06-13] MEDS: IPRATROPIUM-ALBUTEROL 3 ML NEB INHALATION SCH (08:08)
[2022-06-13] MEDS: CITALOPRAM HYDROBROMIDE 20 MG TAB PO SCH (09:07)
[2022-06-13] MEDS: ENOXAPARIN 40 MG/0.4 ML SYRINGE SQ SCH (09:07)
[2022-06-13] MEDS: TAMSULOSIN 0.4 MG CAP.ER.24H PO SCH (09:08)
[2022-06-13] MEDS: BUMETANIDE 1 MG TAB PO SCH (09:08)
[2022-06-13] MEDS: carvediloL 6.25 MG TAB PO SCH ×2 (09:08→21:16)
[2022-06-13] MEDS: MIDODRINE 5 MG TAB PO SCH ×2 (09:08→18:04)
[2022-06-13] MEDS: ATORVASTATIN 80 MG TAB PO SCH (09:08)
[2022-06-13] MEDS: SACUBITRIL/VALSARTAN 24 MG-26 MG TABLET PO SCH ×2 (09:09→21:16)
[2022-06-13] MEDS: FERROUS SULFATE 325 MG TAB PO SCH (09:10)
[2022-06-13] MEDS: ALBUTEROL NEBULIZED 2.5 MG/3 ML INHALATION SCH ×3 (11:31→19:46)
[2022-06-13] MEDS: IPRATROPIUM 0.5 MG/2.5 ML NEBU INHALATION SCH ×3 (11:32→19:47)
--- NOTE | 2022-06-13 14:02 | PN ---
PROGRESS NOTE SUBJECTIVE: This is an 82-year-old white male, I put him on Entresto for CHF, Protonix for GERD precautions, Primatene for orthostatic hypotension, Ativan for anxiety, Claritin for allergies, Coreg for hypertension, Bumex for CHF, Lipitor for hypercholesterolemia. He has severe COPD. He needs to take an inhaler or updrafts, right now he is on ipratropium bromide q.i.d. scheduled, Pepcid for GI prophylaxis, Rocephin for probable infection for pneumonia. OBJECTIVE: CARDIOVASCULAR: S1, S2. LUNGS: Scattered rhonchi and wheeze. HEMATOLOGY: Negative for Homans. White count 11.2, hemoglobin is 10.7, potassium 3.7, sodium is 142. Thyroid is normal. He had a chest CT, had an echocardiogram, and cardiology consult. Echo shows heart is pumping 45-50%. IVS is very bulged. Grade 1 diastolic dysfunction, mildly impaired ejection fraction, moderate mitral regurg, aortic sclerosis, [id number] tricuspid regurg. Continue current treatments. Treat for IV antibiotics for UTI positive corynebacteria in the fpc. He is not up and walking, get PT OT involved. He appears more alert every day, he came in dehydrated, he appears to be better. His hypokalemia is improved. We are going to get PT OT involved and get him moving from the fpc for placement for PT, OT. He has elevated BNP secondary to CHF, combined systolic diastolic heart failure. Prognosis guarded. MMODL / IJN: [id number] /
--- NOTE | 2022-06-13 14:46 | P.PN ---
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 On today's evaluation that is 06/13/2022, patient continues to be afebrile, patient is breathing comfortably has been put on a was given oxygen by the primary, patient does not seem to be in any distress and apparently is baseline per the at the bedside Objective - Vital Signs Vital signs: Vital Signs Temp 97.6 F 06/13/22 12:05 Pulse 70 06/13/22 12:05 Resp 18 06/13/22 12:05 BP 116/71 06/13/22 12:05 Pulse Ox 96 06/13/22 12:05 FiO2 21 06/12/22 07:47 Intake & Output 06/12/22 06/13/22 06/13/22 18:59 06:59 18:59 Intake Total 1190 Balance 1190 Intake: Intake, IV Titration 950 Amount Sodium Chloride 0.9% 1, 900 000 ml @ 75 mls/hr IV . [id number] [facility] Rx#:[id number] cefTRIAXone 1 gm In 50 Sodium Chloride 0.9% 50 ml @ 100 mls/hr IVPB Q12HR [facility] Rx#:[id number] Oral 240 Other: Voiding Method Diaper Diaper Diaper # Voids 1 4 1 - Exam GENERAL DESCRIPTION: An elderly male lying in bed in no distress RESPIRATORY SYSTEM: Unlabored breathing , decreased breath sounds at bases HEART: S1 S2 regular rate and rhythm , ABDOMEN: Soft , no tenderness EXTREMITIES: No edema feet - Labs CBC & Chem 7: 06/11/22 06:13 06/12/22 19:52 Labs: Microbiology - Last 24 Hours (Table) 06/08/22 15:07 Blood Culture - Preliminary Blood No Growth after 96 hours 06/08/22 15:13 Blood Culture - Preliminary Blood No Growth after 96 hours Assessment and Plan (1) UTI (urinary tract infection) Current Visit: Yes Status: Acute Code(s): N39.0 - URINARY TRACT INFECTION, SITE NOT SPECIFIED SNOMED Code(s): 32472519 Plan: 1patient was in the hospital with weakness some mental status changes also noticed to have a cloudy urine did have a positive UA likely concerning for symptomatic ureteric infection from enteric gram-negative pathogen there was co ncern for possible right lower extremity cellulitis as mentioned by the however overall swelling and redness has improved currently with no open wound or any drainage. 2patient blood culture have been negative urine showing corynebacterium species 3-patient to continue with Rocephin and continue supportive care Time with Patient: Less than 30
[2022-06-13] MEDS: FAMOTIDINE 20 MG TAB PO SCH (21:16)
[2022-06-13] MEDS: PANTOPRAZOLE 40 MG TABLET PO SCH (21:16)
[2022-06-13] MEDS: ASPIRIN 325 MG TAB PO SCH (21:16)
[2022-06-13] MEDS: LORATADINE 10 MG TAB PO SCH (21:16)
[2022-06-13] MEDS: LATANOPROST 0.005% OPHTH DROPS 2.5 ML BTL BOTH EYES SCH (21:18)
[2022-06-14] MEDS: SODIUM CHLORIDE 0.9% 1,000 ML IV SCH ×2 (06:36→18:41)
[2022-06-14] MEDS: IPRATROPIUM 0.5 MG/2.5 ML NEBU INHALATION SCH ×4 (09:04→18:46)
[2022-06-14] MEDS: ALBUTEROL NEBULIZED 2.5 MG/3 ML INHALATION SCH ×4 (09:04→18:45)
[2022-06-14] MEDS: ENOXAPARIN 40 MG/0.4 ML SYRINGE SQ SCH (10:25)
[2022-06-14 11:44] LABS: Basophils # (A) 0.07 X 10*3/uL (0.00-0.10); Basophils % (A) 0.7 %; Eosinophils # (A) 0.55 X 10*3/uL (0.04-0.35); Eosinophils % (A) 5.3 %; HGB 10.6 g/dL (13.0-17.0); Immature Grans, Automated 0.4 %; Lymphocytes # (A) 1.29 X 10*3/uL (0.90-5.00); Lymphocytes % (A) 12.3 %; MCH 31.5 pg (27.0-32.0); MCHC 32.1 g/dL (32.0-37.0); MCV 97.9 fL (80.0-97.0); Mean Platelet Volume 9.8 fL (9.5-12.2); Monocytes # (A) 1.37 X 10*3/uL (0.20-1.00); Monocytes % (A) 13.1 %; NRBC Per 100 WBC 0 /100 WBCS (0.0-0.0); Neutrophils # (A) 7.14 X 10*3/uL (1.80-7.70); Neutrophils % (A) 68.2 %; Platelet Count 224 X 10*3/uL (140-440); RBC 3.37 X 10*6/uL (4.40-5.60); RDW 14.3 % (11.5-14.5); WBC 10.46 X 10*3/uL (4.50-10.00)
[2022-06-14 11:54] LABS: African American GFR (CKD) 71.1 (60.0-200.0); Albumin 2.6 g/dL (3.8-4.9); Albumin/Globulin Ratio 1.13 (1.60-3.17); Anion Gap 8.8 mmol/L (10.00-18.00); BUN/Creat Ratio 14.55 Ratio (12.00-20.00); Calcium 8.1 mg/dL (8.7-10.3); Carbon Dioxide 25.2 mmol/L (20.0-27.5); Globulin 2.3 g/dL (1.6-3.3); Non-African American GFR(CKD) 61.3 (60.0-200.0); Potassium 3.1 mmol/L (3.5-5.5); Total Bilirubin 0.5 mg/dL (0.30-1.20); Total Protein 4.9 g/dL (6.2-8.2)
[2022-06-14] MEDS: carvediloL 6.25 MG TAB PO SCH ×2 (13:57→21:28)
[2022-06-14] MEDS: MIDODRINE 5 MG TAB PO SCH ×2 (13:57→18:00)
[2022-06-14] MEDS: TAMSULOSIN 0.4 MG CAP.ER.24H PO SCH (13:57)
[2022-06-14] MEDS: ACETAMINOPHEN TAB 325 MG TAB PO PRN (13:57)
[2022-06-14] MEDS: CITALOPRAM HYDROBROMIDE 20 MG TAB PO SCH (13:58)
[2022-06-14] MEDS: FERROUS SULFATE 325 MG TAB PO SCH (13:58)
[2022-06-14] MEDS: ATORVASTATIN 80 MG TAB PO SCH (13:58)
[2022-06-14] MEDS: BUMETANIDE 1 MG TAB PO SCH (14:04)
[2022-06-14] MEDS: SACUBITRIL/VALSARTAN 24 MG-26 MG TABLET PO SCH ×2 (14:05→21:27)
[2022-06-14] MEDS ORDERED: Potassium Replacement Protocol 1 EACH MISC MISCELLANE PRN ×2 (14:07→14:10)
[2022-06-14] MEDS: POTASSIUM CHLORIDE ER 20 MEQ TAB.ER PO SCH ×2 (14:57→17:46)
[2022-06-14] MEDS ORDERED: POTASSIUM BICARBONATE/CIT AC 20 MEQ TABLET.EFF NG-TUBE SCH (15:00)
[2022-06-14] MEDS: PANTOPRAZOLE 40 MG TABLET PO SCH (21:26)
[2022-06-14] MEDS: FAMOTIDINE 20 MG TAB PO SCH (21:26)
[2022-06-14] MEDS: LORATADINE 10 MG TAB PO SCH (21:27)
[2022-06-14] MEDS: LATANOPROST 0.005% OPHTH DROPS 2.5 ML BTL BOTH EYES SCH (21:27)
[2022-06-14] MEDS: ASPIRIN 325 MG TAB PO SCH (21:27)
--- NOTE | 2022-06-15 01:51 | PN ---
PROGRESS NOTE SUBJECTIVE: An 82-year-old white male, cellulitis of the legs, UTI. Continue with current treatments. Treating for UTI and metabolic encephalopathy. PT, OT. Rehab placement will be soon. OBJECTIVE: CARDIOVASCULAR: S1, S2. LUNGS: Clear. GI: Soft. HEMATOLOGY: Negative Homans. PSYCH: Fair mood and affect. ASSESSMENT: Cellulitis, urinary tract infection, altered mental status, dementia, chronic obstructive pulmonary disease, nocturnal hypoxemia. Prognosis guarded. PT, OT. Follow up in the next 24 to 48 hours. MMODL / IJN: [id number] /
[2022-06-15] MEDS: SODIUM CHLORIDE 0.9% 1,000 ML IV SCH ×2 (09:09→23:55)
[2022-06-15] MEDS: ENOXAPARIN 40 MG/0.4 ML SYRINGE SQ SCH (09:09)
[2022-06-15] MEDS: SACUBITRIL/VALSARTAN 24 MG-26 MG TABLET PO SCH ×2 (09:15→23:54)
[2022-06-15] MEDS: FERROUS SULFATE 325 MG TAB PO SCH (09:15)
[2022-06-15] MEDS: CITALOPRAM HYDROBROMIDE 20 MG TAB PO SCH (09:15)
[2022-06-15] MEDS: MIDODRINE 5 MG TAB PO SCH ×2 (09:15→17:48)
[2022-06-15] MEDS: carvediloL 6.25 MG TAB PO SCH ×2 (09:15→23:54)
[2022-06-15] MEDS: ATORVASTATIN 80 MG TAB PO SCH (09:15)
[2022-06-15] MEDS: TAMSULOSIN 0.4 MG CAP.ER.24H PO SCH (09:15)
[2022-06-15] MEDS: BUMETANIDE 1 MG TAB PO SCH (09:16)
[2022-06-15] MEDS: ALBUTEROL NEBULIZED 2.5 MG/3 ML INHALATION SCH ×4 (09:33→20:12)
[2022-06-15] MEDS: IPRATROPIUM 0.5 MG/2.5 ML NEBU INHALATION SCH ×4 (09:33→20:26)
--- NOTE | 2022-06-15 21:12 | P.PN ---
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 On today's evaluation that is 06/14/2022, patient remains to be afebrile, patient is breathing comfortably on room air, patient does not seem to be in any distress and apparently is baseline per the at the bedside Objective - Vital Signs Vital signs: Vital Signs Temp 98.3 F 06/14/22 11:38 Pulse 68 06/14/22 11:38 Resp 18 06/14/22 11:38 BP 128/69 06/14/22 11:38 Pulse Ox 97 06/14/22 11:38 FiO2 21 06/12/22 07:47 Intake & Output 06/13/22 06/14/22 06/14/22 18:59 06:59 18:59 Other: Voiding Method Diaper Diaper # Voids 1 6 1 - Exam GENERAL DESCRIPTION: An elderly male lying in bed in no distress RESPIRATORY SYSTEM: Unlabored breathing , decreased breath sounds at bases HEART: S1 S2 regular rate and rhythm , ABDOMEN: Soft , no tenderness EXTREMITIES: No edema feet - Labs CBC & Chem 7: 06/14/22 07:26 06/14/22 18:51 Labs: Abnormal Lab Results - Last 24 Hours (Table) 06/14/22 06/14/22 Range/Units 07:26 07:26 WBC 10.46 H (4.50-10.00) X 10*3/uL RBC 3.37 L (4.40-5.60) X 10*6/uL Hgb 10.6 L (13.0-17.0) g/dL Hct 33.0 L (39.6-50.0) % MCV 97.9 H (80.0-97.0) fL Monocytes # 1.37 H (0.20-1.00) X 10*3/uL Eosinophils # 0.55 H (0.04-0.35) X 10*3/uL Potassium 3.1 L (3.5-5.5) mmol/L Anion Gap 8.80 L (10.00-18.00) mmol/L Calcium 8.1 L (8.7-10.3) mg/dL Total Protein 4.9 L (6.2-8.2) g/dL Albumin 2.6 L (3.8-4.9) g/dL Albumin/Globulin Ratio 1.13 L (1.60-3.17) g/dL Microbiology - Last 24 Hours (Table) 06/08/22 15:07 Blood Culture - Preliminary Blood No Growth after 120 hours 06/08/22 15:13 Blood Culture - Preliminary Blood No Growth after 120 hours Assessment and Plan (1) UTI (urinary tract infection) Current Visit: Yes Status: Acute Code(s): N39.0 - URINARY TRACT INFECTION, SITE NOT SPECIFIED SNOMED Code(s): 45221488 Plan: 1patient was in the hospital with weakness some mental status changes also noticed to have a cloudy urine did have a positive UA likely concerning for symptomatic ureteric infection from enteric gram-negative pathogen there was concern for possible right lower extremity cellulitis as mentioned by the however overall swelling and redness has improved currently with no open wound or any drainage. 2patient blood culture have been negative urine showing corynebacterium species 3-patient to continue with Rocephin, in view of the clinical response and monito r clinical course closely Time with Patient: Less than 30
--- NOTE | 2022-06-15 21:13 | P.PN ---
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 On today's evaluation that is 06/15/2022, patient continues to be afebrile, patient is breathing comfortably on room air, patient does not seem to be in any distress, patient is nonverbal and did not answer any questions no vomiting or diarrhea has been reported Objective - Vital Signs Vital signs: Vital Signs Temp 97.7 F 06/15/22 11:19 Pulse 72 06/15/22 12:53 Resp 16 06/15/22 11:19 BP 109/55 06/15/22 11:19 Pulse Ox 92 L 06/15/22 11:19 FiO2 21 06/15/22 09:34 Intake & Output 06/14/22 06/15/22 06/15/22 18:59 06:59 18:59 Intake Total 901 Balance 901 Intake: Intake, IV Titration 901 Amount Sodium Chloride 0.9% 1, 900 000 ml @ 75 mls/hr IV . [id number] [facility] Rx#:[id number] cefTRIAXone 1 gm In 1 Sodium Chloride 0.9% 50 ml @ 100 mls/hr IVPB Q12HR [facility] Rx#:[id number] Other: Voiding Method Diaper Diaper Incontinent # Voids 1 4 - Exam GENERAL DESCRIPTION: An elderly male lying in bed in no distress RESPIRATORY SYSTEM: Unlabored breathing , decreased breath sounds at bases HEART: S1 S2 regular rate and rhythm , ABDOMEN: Soft , no tenderness EXTREMITIES: No edema feet - Labs CBC & Chem 7: 06/14/22 07:26 06/14/22 18:51 Labs: Abnormal Lab Results - Last 24 Hours (Table) 06/14/22 Range/Units 18:51 Potassium 3.1 L (3.5-5.1) mmol/L Microbiology - Last 24 Hours (Table) 06/08/22 15:13 Blood Culture - Final Blood No Growth after 144 hours 06/08/22 15:07 Blood Culture - Final Blood No Growth after 144 hours Assessment and Plan (1) UTI (urinary tract infection) Current Visit: Yes Status: Acute Code(s): N39.0 - URINARY TRACT INFECTION, SITE NOT SPECIFIED SNOMED Code(s): 95760180 Plan: 1patient was in the hospital with weakness some mental status changes also noticed to have a cloudy urine did have a positive UA likely concerning for symptomatic ureteric infection from enteric gram-negative pathogen there was concern for possible right lower extremity cellulitis as mentioned by the however overall swelling and redness has improved currently with no open wound or any drainage. 2patient blood culture have been negative urine showing corynebacterium species 3-patient white count has normalized, repeat the UA, patient to continue with Rocephin and monitor clinical course closely Time with Patient: Less than 30
[2022-06-15] MEDS: LORATADINE 10 MG TAB PO SCH (23:53)
[2022-06-15] MEDS: FAMOTIDINE 20 MG TAB PO SCH (23:54)
[2022-06-15] MEDS: ASPIRIN 325 MG TAB PO SCH (23:54)
[2022-06-15] MEDS: PANTOPRAZOLE 40 MG TABLET PO SCH (23:54)
[2022-06-15] MEDS: LATANOPROST 0.005% OPHTH DROPS 2.5 ML BTL BOTH EYES SCH (23:55)
--- NOTE | 2022-06-16 01:56 | PN ---
PROGRESS NOTE SUBJECTIVE: This is an 82-year-old, continues to improve with breathing. OBJECTIVE: CARDIOVASCULAR: S1, S2. LUNGS: Clear. GI: Soft. Hematology: Negative Homans. PSYCH: Fair mood and affect. HEENT: Ophthalmologic, pupils equal, round, reactive to light. NEUROLOGIC: Alert and oriented x3. Continue current treatment. Follow up in next 24 to 48 hours. Prognosis guarded. He will need to go to rehab for PT, OT. MMKARENL / BRIANN: [id number] /
[2022-06-16] MEDS: ALBUTEROL NEBULIZED 2.5 MG/3 ML INHALATION SCH ×4 (07:33→18:10)
[2022-06-16] MEDS: IPRATROPIUM 0.5 MG/2.5 ML NEBU INHALATION SCH ×4 (07:33→18:10)
[2022-06-16 09:30] LABS: Basophils # (A) 0.08 X 10*3/uL (0.00-0.10); Basophils % (A) 0.8 %; Eosinophils # (A) 0.41 X 10*3/uL (0.04-0.35); Eosinophils % (A) 4.1 %; HCT 33.3 % (39.6-50.0); HGB 11.1 g/dL (13.0-17.0); Immature Grans, Automated 0.4 %; Lymphocytes # (A) 1.16 X 10*3/uL (0.90-5.00); Lymphocytes % (A) 11.6 %; MCH 31.7 pg (27.0-32.0); MCHC 33.3 g/dL (32.0-37.0); MCV 95.1 fL (80.0-97.0); Mean Platelet Volume 10.1 fL (9.5-12.2); Monocytes # (A) 1.07 X 10*3/uL (0.20-1.00); Monocytes % (A) 10.7 %; NRBC Per 100 WBC 0 /100 WBCS (0.0-0.0); Neutrophils # (A) 7.25 X 10*3/uL (1.80-7.70); Neutrophils % (A) 72.4 %; Platelet Count 249 X 10*3/uL (140-440); RDW 14.1 % (11.5-14.5); WBC 10.01 X 10*3/uL (4.50-10.00)
[2022-06-16 09:48] LABS: African American GFR (CKD) 79.7 (60.0-200.0); Albumin 2.7 g/dL (3.8-4.9); Calcium 8.3 mg/dL (8.7-10.3); Non-African American GFR(CKD) 68.8 (60.0-200.0); Potassium 3.2 mmol/L (3.5-5.5); Total Protein 5.3 g/dL (6.2-8.2)
[2022-06-16 09:49] LABS: Albumin/Globulin Ratio 1.04 (1.60-3.17); C Reactive Protein 5.7 mg/dL (0.00-0.80); Globulin 2.6 g/dL (1.6-3.3); Total Bilirubin 0.5 mg/dL (0.30-1.20)
[2022-06-16] MEDS: SACUBITRIL/VALSARTAN 24 MG-26 MG TABLET PO SCH ×2 (10:11→21:51)
[2022-06-16] MEDS: BUMETANIDE 1 MG TAB PO SCH (10:11)
[2022-06-16] MEDS: MIDODRINE 5 MG TAB PO SCH ×2 (10:11→18:23)
[2022-06-16] MEDS: CITALOPRAM HYDROBROMIDE 20 MG TAB PO SCH (10:12)
[2022-06-16] MEDS: carvediloL 6.25 MG TAB PO SCH ×3 (10:12→21:53)
[2022-06-16] MEDS: FERROUS SULFATE 325 MG TAB PO SCH (10:12)
[2022-06-16] MEDS: ATORVASTATIN 80 MG TAB PO SCH (10:12)
[2022-06-16] MEDS: TAMSULOSIN 0.4 MG CAP.ER.24H PO SCH (10:12)
[2022-06-16] MEDS: DOXYCYCLINE 100 MG CAP PO SCH ×2 (10:12→21:51)
[2022-06-16] MEDS: ENOXAPARIN 40 MG/0.4 ML SYRINGE SQ SCH (10:13)
[2022-06-16 12:35] LABS: Appearance,Urine Clear (Clear); Bilirubin,Urine Negative (Negative); Blood,Urine Negative (Negative); Color,Urine Colorless; Glucose,Urine (UA) Negative (Negative); Ketones,Urine Negative (Negative); Leukocyte Esterase,Urine Negative (Negative); Nitrite,Urine Negative (Negative); PH, Urine 6.5 (5.0-8.0); Protein,Urine Negative (Negative); Specific Gravity,Urine 1.005 (1.001-1.035); Urobilinogen,Urine <2.0 mg/dL (<2.0)
--- NOTE | 2022-06-16 14:17 | DS ---
DISCHARGE SUMMARY DISCHARGE MEDICINES: 1. Protonix 40 mg daily. 2. DuoNeb updrafts q.i.d. 3. Lipitor 80 mg daily. 4. Flomax 0.4 mg daily. 5. Xalatan 0.005% drops both eyes daily. 6. Coreg 6.25 b.i.d. 7. Bumex 1 mg daily. 8. Midodrine 5 mg a.c. b.i.d. 9. Ferrous sulfate 325 mg daily. 10.Aspirin 325 mg daily. 11.Fexofenadine 180 mg daily. 12.Citalopram 20 mg daily. ACTIVITY: Ambulate as tolerated. HOSPITAL COURSE AND EVENTS: This is a white male who came in with UTI, positive for Corynebacterium, generalized weakness, cellulitis of the legs, diastolic heart failure, acute on chronic diastolic and systolic heart failure, started on Bumex for diuresis, started on Entresto for CHF. Continues on current treatment. Has metabolic encephalopathy secondary to UTI and dementia COPD, pulmonary hypertension for which medicine was given for pulmonary hypertension. The patient was stabilized with current medications and follow up in next 24 to 48 hours for further treatment. Prognosis guarded. Go to the [facility] for Dr. Sukumar johnson for physical therapy. DIET: As tolerated. CONDITION: Stable. PROGNOSIS: Guarded. MMKARENL / BRIANN: [id number] /
[2022-06-16] MEDS: PANTOPRAZOLE 40 MG TABLET PO SCH (21:51)
[2022-06-16] MEDS: FAMOTIDINE 20 MG TAB PO SCH (21:51)
[2022-06-16] MEDS: LORATADINE 10 MG TAB PO SCH (21:51)
[2022-06-16] MEDS: ASPIRIN 325 MG TAB PO SCH (21:51)
[2022-06-16] MEDS: LATANOPROST 0.005% OPHTH DROPS 2.5 ML BTL BOTH EYES SCH (22:06)
--- NOTE | 2022-06-16 23:07 | P.PN ---
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 On today's evaluation that is 06/16/2022, The patient remains to be afebrile, patient is breathing comfortably on room air patient remains to be nonverbal and unable to provide any history no vomiting diarrhea or any other changes reported by nursing staff Objective - Vital Signs Vital signs: Vital Signs Temp 98.1 F 06/16/22 07:54 Pulse 76 06/16/22 11:32 Resp 17 06/16/22 07:54 BP 128/70 06/16/22 09:32 Pulse Ox 97 06/16/22 07:54 FiO2 21 06/15/22 09:34 Intake & Output 06/15/22 06/16/22 06/16/22 18:59 06:59 18:59 Other: Voiding Method Diaper Diaper Diaper Incontinent Incontinent # Voids 4 1 - Exam GENERAL DESCRIPTION: An elderly male lying in bed in no distress RESPIRATORY SYSTEM: Unlabored breathing , decreased breath sounds at bases HEART: S1 S2 regular rate and rhythm , ABDOMEN: Soft , no tenderness EXTREMITIES: No edema feet - Labs CBC & Chem 7: 06/16/22 06:13 06/16/22 06:13 Labs: Abnormal Lab Results - Last 24 Hours (Table) 06/16/22 06/16/22 Range/Units 06:13 06:13 WBC 10.01 H (4.50-10.00) X 10*3/uL RBC 3.50 L (4.40-5.60) X 10*6/uL Hgb 11.1 L (13.0-17.0) g/dL Hct 33.3 L (39.6-50.0) % Monocytes # 1.07 H (0.20-1.00) X 10*3/uL Eosinophils # 0.41 H (0.04-0.35) X 10*3/uL Potassium 3.2 L (3.5-5.5) mmol/L Calcium 8.3 L (8.7-10.3) mg/dL C-Reactive Protein 5.70 H (0.00-0.80) mg/dL Total Protein 5.3 L (6.2-8.2) g/dL Albumin 2.7 L (3.8-4.9) g/dL Albumin/Globulin Ratio 1.04 L (1.60-3.17) g/dL Assessment and Plan (1) UTI (urinary tract infection) Current Visit: Yes Status: Acute Code(s): N39.0 - URINARY TRACT INFECTION, SITE NOT SPECIFIED SNOMED Code(s): 96900425 Plan: 1patient was in the hospital with weakness some mental status changes also noticed to have a cloudy urine did have a positive UA likely concerning for sym ptomatic ureteric infection from enteric gram-negative pathogen there was concern for possible right lower extremity cellulitis as mentioned by the however overall swelling and redness has improved currently with no open wound or any drainage. 2patient blood culture have been negative urine showing corynebacterium species 3-Patient currently being treated with Rocephin 1 g daily to continue waiting for the repeat UA if negative antibiotics can be safely discontinued Time with Patient: Less than 30
--- NOTE | 2022-06-17 03:23 | PN ---
PROGRESS NOTE SUBJECTIVE: This is an 82-year-old white male, cellulitis of the right leg, pulmonary hypertension, diastolic heart failure, UTI. Patient is slowly improving. PT OT has been poor. He will perhaps possibly go home and do therapy home health care, which is already set up. PHYSICAL EXAMINATION: CARDIOVASCULAR: S1, S2. LUNGS: Clear. GI: Soft. HEMATOLOGY: Negative for Homans. PSYCH: Fair mood and affect. Continue current treatment. MMODL / IJN: [id number] /
[2022-06-17] MEDS: ALBUTEROL NEBULIZED 2.5 MG/3 ML INHALATION SCH ×4 (07:43→19:47)
[2022-06-17] MEDS: IPRATROPIUM 0.5 MG/2.5 ML NEBU INHALATION SCH ×4 (07:43→19:47)
[2022-06-17] MEDS: DOXYCYCLINE 100 MG CAP PO SCH ×2 (08:15→21:03)
[2022-06-17] MEDS: ENOXAPARIN 40 MG/0.4 ML SYRINGE SQ SCH (08:16)
[2022-06-17] MEDS: SACUBITRIL/VALSARTAN 24 MG-26 MG TABLET PO SCH ×2 (08:17→21:03)
[2022-06-17] MEDS: carvediloL 6.25 MG TAB PO SCH ×2 (08:17→21:03)
[2022-06-17] MEDS: FERROUS SULFATE 325 MG TAB PO SCH (08:17)
[2022-06-17] MEDS: BUMETANIDE 1 MG TAB PO SCH (08:17)
[2022-06-17] MEDS: CITALOPRAM HYDROBROMIDE 20 MG TAB PO SCH (08:17)
[2022-06-17] MEDS: ATORVASTATIN 80 MG TAB PO SCH (08:17)
[2022-06-17] MEDS: MIDODRINE 5 MG TAB PO SCH ×2 (08:17→17:49)
[2022-06-17] MEDS: TAMSULOSIN 0.4 MG CAP.ER.24H PO SCH (08:17)
--- NOTE | 2022-06-17 15:03 | P.PN ---
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 On today's evaluation that is 06/17/2022, The patient continues to be afebrile, patient is breathing comfortably on room air patient remains to be nonverbal and unable to provide any history no vomiting diarrhea or any other changes reported by nursing staff Objective - Vital Signs Vital signs: Vital Signs Temp 97.0 F L 06/17/22 13:03 Pulse 71 06/17/22 13:03 Resp 15 06/17/22 13:03 BP 110/65 06/17/22 13:03 Pulse Ox 97 06/17/22 13:03 FiO2 21 06/15/22 09:34 Intake & Output 06/16/22 06/17/22 06/17/22 18:59 06:59 18:59 Other: Voiding Method Diaper Diaper Diaper # Voids 3 1 - Exam GENERAL DESCRIPTION: An elderly male lying in bed in no distress RESPIRATORY SYSTEM: Unlabored breathing , decreased breath sounds at bases HEART: S1 S2 regular rate and rhythm , ABDOMEN: Soft , no tenderness EXTREMITIES: No edema feet - Labs CBC & Chem 7: 06/16/22 06:13 06/16/22 06:13 Assessment and Plan (1) UTI (urinary tract infection) Current Visit: Yes Status: Acute Code(s): N39.0 - URINARY TRACT INFECTION, SITE NOT SPECIFIED SNOMED Code(s): 98501683 Plan: 1patient was in the hospital with weakness some mental status changes also noticed to have a cloudy urine did have a positive UA likely concerning for symptomatic ureteric infection from enteric gram-negative pathogen there was concern for possible right lower extremity cellulitis as mentioned by the however overall swelling and redness has improved currently with no open wound or any drainage. 2patient blood culture have been negative urine showing corynebacterium species 3-Patient repeat UA is negative indicating adequate treatment of underlying UTI Rocephin has been discontinued patient will monitor closely off antibiotic therapy Time with Patient: Less than 30
[2022-06-17] MEDS: FAMOTIDINE 20 MG TAB PO SCH (21:03)
[2022-06-17] MEDS: LORATADINE 10 MG TAB PO SCH (21:03)
[2022-06-17] MEDS: PANTOPRAZOLE 40 MG TABLET PO SCH (21:03)
[2022-06-17] MEDS: ASPIRIN 325 MG TAB PO SCH (21:03)
[2022-06-17] MEDS: LATANOPROST 0.005% OPHTH DROPS 2.5 ML BTL BOTH EYES SCH (21:03)
[2022-06-18 07:42] VITALS: BP 114/70; PULSE 72; RESP 18; TEMP 97.8
[2022-06-18] MEDS: IPRATROPIUM 0.5 MG/2.5 ML NEBU INHALATION SCH ×2 (08:17→11:45)
[2022-06-18] MEDS: ALBUTEROL NEBULIZED 2.5 MG/3 ML INHALATION SCH ×2 (08:17→11:45)
[2022-06-18] MEDS: MIDODRINE 5 MG TAB PO SCH (09:08)
--- NOTE | 2022-06-18 09:43 | DS ---
DISCHARGE SUMMARY CONDITION: Stable. PROGNOSIS: Guarded. ACTIVITY: Ambulate as tolerated. Diet as tolerated. He will need to elevate his bed 30 degrees tonight. HOME MEDICATIONS: Include, 1. DuoNeb updraft q.i.d. 2. Entresto 24/ b.i.d. 3. Lovenox 40 mg subcu daily. 4. Vibramycin 100 b.i.d. 5. Ativan 0.5 q.6h p.r.n. for anxiety. 6. Protonix 40 mg daily. 7. Ventolin nebulizer 2.5 q.6-8 hours p.r.n. for breathing difficulties. 8. Lipitor 80 mg daily. 9. Flomax 0.4 daily. 10.Xalatan eye drops daily. 11.Coreg 6.25 b.i.d. 12.Bumex 1 mg daily. 13.Midodrine 5 mg b.i.d. 14.Ferrous sulfate 325 daily. 15.Aspirin 325 daily. 16.Margaret 180 at bedtime. 17.Citalopram 20 mg daily. DISCHARGE DIAGNOSES: 1. Cellulitis of the right leg. 2. Acute on chronic diastolic systolic heart failure. 3. Metabolic encephalopathy. 4. Urinary tract infection. 5. Dementia. 6. Hypertension. 7. Hearing loss. Regulate profound hearing for he can't really hear you. 8. Some dementia with behavioral issues. The patient was admitted, started with IV antibiotics for the right leg. Treated for COPD, pulmonary hypertension, diastolic heart failure. The patient stabilized and was sent home in stable condition with PT, OT needed. He is unable to get out of bed. He needs more physical therapy to get out of bed. Otherwise, he has been stable from medical standpoint. Follow up with Dr. Capps in a week. MMODL / IJN: [id number] /
[2022-06-18] MEDS: TAMSULOSIN 0.4 MG CAP.ER.24H PO SCH (11:15)
[2022-06-18] MEDS: FERROUS SULFATE 325 MG TAB PO SCH (11:15)
[2022-06-18] MEDS: carvediloL 6.25 MG TAB PO SCH (11:15)
[2022-06-18] MEDS: ATORVASTATIN 80 MG TAB PO SCH (11:16)
[2022-06-18] MEDS: SACUBITRIL/VALSARTAN 24 MG-26 MG TABLET PO SCH (11:16)
[2022-06-18] MEDS: ENOXAPARIN 40 MG/0.4 ML SYRINGE SQ SCH (11:16)
[2022-06-18] MEDS: CITALOPRAM HYDROBROMIDE 20 MG TAB PO SCH (11:16)
[2022-06-18] MEDS: DOXYCYCLINE 100 MG CAP PO SCH (11:16)
[2022-06-18] MEDS: BUMETANIDE 1 MG TAB PO SCH (11:16)
--- NOTE | 2022-06-19 20:18 | CDI ---
Documentation Clarification Form Date: From: Eliza Florence Phone: Admit Date: 06/12/2022 1:16:00 PM Patient Name: Samm Diaz Visit Number: [id number] Discharge Date: 06/18/2022 12:14:00 PM ATTENTION: The Clinical Documentation Specialists (CDI) and [facility] Coding Staff appreciate your assistance in clarifying documentation. Please respond to the clarification below the line at the bottom and electronically sign. The CDI & [facility] Coding staff will review the response and follow-up if needed. Please note: Queries are made part of the Legal Health Record. If you have any questions, please contact the author of this message via ITS. Dr. Sukumar Capps Sepsis is documented per Cardiology Consult which may lack sufficient clinical evidence/support in the medical record. Additional clarification is requested. History/Risk Factors: 82yo M,WEI,sepsis, multiple falls, UTI, Hx CVA2, vascular dementia, HTN, HLD, BPH, GERD Clinical Indicators: WBC Lactic acid: 1.0 Blood cultures: NG144 Vitals signs: Temp 97.9 F Pulse 48 L Resp 20 B/P 122/73 Pulse Oc95 Treatment: Antibiotics: Patient repeat UA is negative indicating adequate treatment of underlyingUTI Rocephin has been discontinued patient will monitor closely off antibiotic therapy Is there an additional diagnosis that is clinically appropriate for this patient? [ ] Sepsis, present on admission [ ] Sepsis ruled out [ ] Other, please specify [ ] Unable to determine SIRS Criteria: 2 or more of the following may indicate SIRS Temperature < 96.8F (36C) or > 101.0F (38.3C) Heart Rate > 90 bpm Respiratory Rate > 20 breaths/min or PaCO2 < 32 mmHg White Blood Cell Count > 12,000 or < 4,000 cells/mm3 or > 10% bands (Template Last Reviewed: March 2022) MTDD
--- NOTE | 2022-06-19 20:39 | CDI ---
Documentation Clarification Form Date: 06/19/2022 08:25 PM From: Eliza Florence Phone: Admit Date: 06/12/2022 1:16:00 PM Patient Name: Samm Diaz Visit Number: [id number] Discharge Date: 06/18/2022 12:14:00 PM ATTENTION: The Clinical Documentation Specialists (CDI) and [facility] Coding Staff appreciate your assistance in clarifying documentation. Please respond to the clarification below the line at the bottom and electronically sign. The CDI & [facility] Coding staff will review the response and follow-up if needed. Please note: Queries are made part of the Legal Health Record. If you have any questions, please contact the author of this message via ITS. Dr. Sukumar Capps Sepsis is documented per Cardiology Consult which may lack sufficient clinical evidence/support in the medical record. Additional clarification is requested. History/Risk Factors: 82yo M,WEI,sepsis, multiple falls, UTI, Hx CVA2, vascular dementia, HTN, HLD, BPH, GERD Clinical Indicators: Patient presents with a BUN/CR and GFR on 21/04.72 and AA 41/ NonAA 36 Subsequent BUN/CR and GFR on 15.0/1.0 and AA 79.7/ NonAA 68.8 Urinalysis: Corynebacterium urealyticum Treatment: gentle IV fluid; Potassium replacementprotocol. Is there an additional diagnosis that is clinically appropriate for this patient? [ ] WEI, present on admission [ ] WEI ruled out [ ] Other, please specify [ ] Unable to determine (Template Last Reviewed: March 2022) MTDD
--- NOTE | 2022-06-25 13:35 | P.PN ---
Subjective Progress Note Date: 06/18/22 Principal diagnosis: Urinary tract infection Patient is a 82-year-old male with a past medical history significant for CVA TIA [place] prostate disorder patient was brought into the ER concerning for possible UTI apparently patient has been complaining of more weakness and did have strong smelling urine, patient did have a positive UA started on Rocephin. On today's evaluation that is 06/18/2022, The patient remains to be afebrile, patient is breathing comfortably on room air, patient remains to be nonverbal and is not able to provide any history no vomiting diarrhea or any other changes reported by nursing staff, no distress has been noticed Objective - Vital Signs Vital signs: Vital Signs Temp 97.8 F 06/18/22 07:00 Pulse 72 06/18/22 08:00 Resp 18 06/18/22 08:00 BP 114/70 06/18/22 07:00 Pulse Ox 96 06/18/22 07:00 FiO2 21 06/15/22 09:34 Intake & Output 06/17/22 06/18/22 06/18/22 18:59 06:59 18:59 Intake Total 200 120 Balance 200 120 Intake: Oral 200 120 Other: Voiding Method Diaper Diaper Diaper # Voids 1 - Exam GENERAL DESCRIPTION: An elderly male lying in bed in no distress RESPIRATORY SYSTEM: Unlabored breathing , decreased breath sounds at bases HEART: S1 S2 regular rate and rhythm , ABDOMEN: Soft , no tenderness EXTREMITIES: No edema feet - Labs CBC & Chem 7: 06/16/22 06:13 06/16/22 06:13 Assessment and Plan (1) UTI (urinary tract infection) Status: Acute Code(s): N39.0 - URINARY TRACT INFECTION, SITE NOT SPECIFIED SNOMED Code(s): 45991764 Plan: 1patient was in the hospital with weakness some mental status changes also noticed to have a cloudy urine did have a positive UA likely concerning for symptomatic ureteric infection from enteric gram-negative pathogen there was concern for possible right lower extremity cellulitis as mentioned by the however overall swelling and redness has improved currently with no open wound or any drainage. 2patient blood culture have been negative urine showing corynebacterium species 3-Patient repeat UA is negative indicating adequate treatment of underlying UTI Rocephin has been discontinued , there is no need for any antibiotic on discharg e Time with Patient: Less than 30
--- NOTE | 2022-06-26 13:01 | CDI ---
Documentation Clarification Form Date: 06/26/2022 12:56:28 PM From: Eliza Florence Phone: Admit Date: 06/12/2022 1:16:00 PM Patient Name: Samm Diaz Visit Number: [id number] Discharge Date: 06/18/2022 12:14:00 PM ATTENTION: The Clinical Documentation Specialists (CDI) and [facility] Coding Staff appreciate your assistance in clarifying documentation. Please respond to the clarification below the line at the bottom and electronically sign. The CDI & [facility] Coding staff will review the response and follow-up if needed. Please note: Queries are made part of the Legal Health Record. If you have any questions, please contact the author of this message via ITS. Dr. Sukumar Capps Thank you for acknowledging the previous query; however, it was returned without a response. Sepsisis documented per Cardiology Consult which may lack sufficient clinical evidence/support in the medical record. Additional clarification is requested. History/Risk Factors: 82yo M,WEI,sepsis,multiple falls,UTI,Hx CVA2, vascular dementia,HTN,HLD,BPH,GERD Clinical Indicators: WBC Lactic acid: 1.0 Blood cultures: NG144 Vitals signs: Temp 97.9 F Pulse 48 L Resp 20 B/P 122/73 Pulse Oc95 Treatment: Antibiotics: Patient repeat UA is negative indicating adequate treatment of underlyingUTIRocephin has been discontinued patient will monitor closely off antibiotictherapy Is there an additional diagnosis that is clinically appropriate for this patient? [ ]Sepsis, present on admission [ ]Sepsisruled out [ ] Other, please specify [ ] Unable to determine SIRSCriteria: 2 or more of the following may indicateSIRS Temperature < 96.8F (36C) or > 101.0F (38.3C) Heart Rate > 90 bpm Respiratory Rate > 20 breaths/min or PaCO2 < 32 mmHg White Blood Cell Count > 12,000 or < 4,000 cells/mm3 or > 10% bands (Template Last Reviewed: March 2022) DANIEL
--- NOTE | 2022-06-26 13:07 | CDI ---
Documentation Clarification Form Date: 06/26/2022 12:56 PM From: Eliza Florence Phone: Admit Date: 06/12/2022 1:16:00 PM Patient Name: Samm Diaz Visit Number: [id number] Discharge Date: 06/18/2022 12:14:00 PM ATTENTION: The Clinical Documentation Specialists (CDI) and [facility] Coding Staff appreciate your assistance in clarifying documentation.Please respond to the clarification below the line at the bottom and electronically sign.The CDI [facility] Coding staff will review the response and follow-up if needed.Please note: Queries are made part of the Legal Health Record.If you have any questions, please contact the author of this message via ITS. Dr. Sukumar Capps Thank you for acknowledging the previous query; however, it was returned without a response. Your patient has diagnostic/radiology results: BUN/CR and GFR on and AA 41/ NonAA 36. Please clarify if there is an additional diagnosis and/or clinical significance related to this result. History/Risk Factors: 82yo M, WEI, sepsis, multiple falls, UTI, Hx CVA 2, vascular dementia, HTN, HLD, BPH, GERD Clinical Indicators: Patient presents with a BUN/CR and GFR on 21/04.72 and AA 41/ NonAA 36 Subsequent BUN/CR and GFR on 15.0/1.0 and AA 79.7/ NonAA 68.8 Urinalysis: Corynebacterium urealyticum Treatment: gentle IV fluid; Potassium replacement protocol. Is there an additional diagnosis that is clinically appropriate for this patient? [ ] WEI, present on admission [ ] WEI ruled out [ ] Other, please specify [ ] Unable to determine (Template Last Reviewed: March 2022) MTDD
--- NOTE | 2022-06-26 13:28 | PN ---
PROGRESS NOTE Acute kidney injury present on admission. MMODL / IJN: [id number] /
--- NOTE | 2022-06-26 13:36 | PN ---
PROGRESS NOTE Sepsis present on admission. MMODL / IJN: [id number] /
--- NOTE | 2022-06-27 10:41 | PN ---
PROGRESS NOTE 1. Sepsis, present on admission. 2. Acute kidney injury, present on admission. MMODL / IJN: [id number] /
== END 2022-06-18 12:14 | DRG 871 ==
LOC: EC 09:07 → 5NMEDONC 14:57 → OBSVTOIN 06-12 13:16
PROVIDERS: ADMIT Family Medicine; ATTEND Family Medicine
DX: A41.89 Other specified sepsis (principal); G93.41 Metabolic encephalopathy; I50.43 Acute on chronic combined systolic (congestive) and diastolic (congestive) heart failure; N39.0 Urinary tract infection, site not specified; N17.9 Acute kidney failure, unspecified; L03.115 Cellulitis of right lower limb; F01.C18 Vascular dementia, severe, with other behavioral disturbance; L03.116 Cellulitis of left lower limb; F01.C3 Vascular dementia, severe, with mood disturbance; F01.C4 Vascular dementia, severe, with anxiety; I27.20 Pulmonary hypertension, unspecified; I11.0 Hypertensive heart disease with heart failure; I69.328 Other speech and language deficits following cerebral infarction; J44.9 Chronic obstructive pulmonary disease, unspecified; B96.89 Other specified bacterial agents as the cause of diseases classified elsewhere; R00.1 Bradycardia, unspecified; H91.90 Unspecified hearing loss, unspecified ear; E86.0 Dehydration; N40.0 Benign prostatic hyperplasia without lower urinary tract symptoms; K21.9 Gastro-esophageal reflux disease without esophagitis; R29.6 Repeated falls; E78.00 Pure hypercholesterolemia, unspecified; R09.02 Hypoxemia; I95.1 Orthostatic hypotension; Z28.311 Partially vaccinated for COVID-19; I25.2 Old myocardial infarction; Z79.82 Long term (current) use of aspirin; Z91.81 History of falling; Z79.899 Other long term (current) drug therapy
CPT/HCPCS: 36415; 71046; 71250; 80053; 81001; 81003; 83605; 83880; 84132; 84443; 84484; 85025; 85610; 85730; 86140; 87040; 87086; 93005; 93306; 94640; 94760; 96360; 99285